=== PATIENT | male | born 1945 | race Caucasian/White ===

== ENCOUNTER → 2016-12-31 | Day surgery (SDC) | payer BC ==
[~2016-12-31] VITALS: Ht 170.2 cm; Wt 88.5 kg
[~2016-12-31] MED LIST: /CELE20CA OR; /ESOM40CA OR; /TAMS4CA OR; /WARF25TA OR; ACET500T37 PO; ACETAMINOPHEN 325 MG TAB PO PRN; ACETYLCHOLINE OPHTH SOLN 1% 2ML As Ordered ONE; AcetaZOLAMIDE 500 MG ER CAP PO ONE; BALANCED SALT IRRIGATION SOLUTION 500ML BAG (FOR OR EYE MACHINE) As Ordered ONE; CEFUROXIME 1MG/0.1ML INTRACAMERAL INJ As Ordered ONE; COZA100T OR; CYCLOPENTOLATE 2% OPHTH SOLN As Ordered ONE; CYCLOPENTOLATE 2% OPHTH SOLN OS ONE; D5W/0.2% SODIUM CHLORIDE 250 ML IV SCH; DEPA250T32 PO; HEALON DUET (HEALON 10MG/ML 0.55ML & HEALON ENDOCOAT 30MG/ML 0.85ML) As Ordered ONE; HYDR12.55 PO; KETOROLAC 0.5% OPHTH SOLN OS ONE; LIDOCAINE 1% SDV 5 ML VIAL As Ordered ONE; LIDOCAINE 4% INJ 5 ML AMP OU ONE; LOSA100T36 PO; MIDAZOLAM INJ 2 MG/2 ML VIAL (J2250) As Ordered ONE; NAPR500T2 PO; NEXI40CA PO; OFLOXACIN 0.3 % (OCUFLOX) OPTH SOL 5ML As Ordered ONE; OFLOXACIN 0.3 % (OCUFLOX) OPTH SOL 5ML OS ONE; PERC5TAB8 OR; PERC7.5T8 OR; PHENYLEPHRINE 2.5% OPHTH SOL 2ML As Ordered ONE; PHENYLEPHRINE 2.5% OPHTH SOL 2ML OS ONE; POVIDONE-IODINE 5% OPHTH PREP SOL 30ML As Ordered ONE; PRAV20TA2 OR; PRAV40TA2 PO; PROPARACAINE 0.5% OPHTH SOL 15ML OS PRN; PROS5TAB OR; PROS5TAB PO; TOPI50TA OR; TRIMETHOBENZAMIDE 300 MG CAP PO PRN; TROPICAMIDE 1% OPHTH SOLN 2 ML As Ordered ONE; TROPICAMIDE 1% OPHTH SOLN 2 ML OS ONE; TYLENOL PO; VITA-112 PO; VITA10006 PO; VYTO10TA5 OR; [UNRECOGNIZED DRUG - OTHER] PO; [UNRECOGNIZED DRUG - REMARK] PO; fentaNYL 100 MCG/2 ML INJECTION (J3010) As Ordered ONE
[2016-12-31 09:00] VITALS: BP 152/88
--- NOTE | 2017-01-01 05:49 | RO ---
DATE OF PROCEDURE: 12/31/2016 PREPROCEDURE DIAGNOSIS: Age-related nuclear cataract left eye. POSTPROCEDURE DIAGNOSIS: Age-related nuclear cataract left eye. PROCEDURE: Phacoemulsification and posterior chamber intraocular lens implantation. The lens used was AU00T0, 22.0 diopter. SURGEON: Argentina Santamaria MD STRATEGIC ADVISOR: ANESTHESIA: Topical with sedation. DESCRIPTION OF PROCEDURE: The patient was prepped and draped in the usual fashion. A lid speculum was placed between the lids. The eye was fixated. A stab incision was made to the anterior chamber, and 1% non-preserved lidocaine was instilled. Then, viscoelastic was instilled. The eye was re-fixated. A 2.75 mm sapphire keratome was used to make a clear corneal temporal limbal incision. Capsulorrhexis was begun with a 30-gauge bent needle and then carried out in a circular fashion with capsulorrhexis forceps. The lens was hydrodissected, and then the phacoemulsification unit was used to make a groove in the nucleus in two meridians. The nucleus was then cracked into four quadrants. Each quadrant was removed with the phacoemulsification unit. Any remaining cortex was removed with the irrigation and aspiration (I and A) unit. Capsular bag was refilled with viscoelastic. A posterior chamber intraocular lens was placed in the capsular bag without difficulty. Any remaining viscoelastic was removed with the I and A unit. The wound was hydrated, and Miochol and cefuroxime were instilled into the anterior chamber. The patient tolerated the procedure well and went to the recovery room in stable condition.
== END | disposition home or self-care (01) ==
LOC: M SDC 07:30
PROVIDERS: ATTEND Ophthalmology
DX: H25.12 Age-related nuclear cataract, left eye (principal); I10 Essential (primary) hypertension; E78.5 Hyperlipidemia, unspecified; K21.9 Gastro-esophageal reflux disease without esophagitis; G47.30 Sleep apnea, unspecified; Z79.899 Other long term (current) drug therapy
CPT/HCPCS: 66984; J2250; J3010

== ENCOUNTER → 2017-01-06 | Outpatient (REF) | payer BC ==
[~2017-01-06] MED LIST changes: -ACETAMINOPHEN 325 MG TAB PO PRN; -ACETYLCHOLINE OPHTH SOLN 1% 2ML As Ordered ONE; -AcetaZOLAMIDE 500 MG ER CAP PO ONE; -BALANCED SALT IRRIGATION SOLUTION 500ML BAG (FOR OR EYE MACHINE) As Ordered ONE; -CEFUROXIME 1MG/0.1ML INTRACAMERAL INJ As Ordered ONE; -CYCLOPENTOLATE 2% OPHTH SOLN As Ordered ONE; -CYCLOPENTOLATE 2% OPHTH SOLN OS ONE; -D5W/0.2% SODIUM CHLORIDE 250 ML IV SCH; -HEALON DUET (HEALON 10MG/ML 0.55ML & HEALON ENDOCOAT 30MG/ML 0.85ML) As Ordered ONE; -KETOROLAC 0.5% OPHTH SOLN OS ONE; -LIDOCAINE 1% SDV 5 ML VIAL As Ordered ONE; -LIDOCAINE 4% INJ 5 ML AMP OU ONE; -MIDAZOLAM INJ 2 MG/2 ML VIAL (J2250) As Ordered ONE; -OFLOXACIN 0.3 % (OCUFLOX) OPTH SOL 5ML As Ordered ONE; -OFLOXACIN 0.3 % (OCUFLOX) OPTH SOL 5ML OS ONE; -PHENYLEPHRINE 2.5% OPHTH SOL 2ML As Ordered ONE; -PHENYLEPHRINE 2.5% OPHTH SOL 2ML OS ONE; -POVIDONE-IODINE 5% OPHTH PREP SOL 30ML As Ordered ONE; -PROPARACAINE 0.5% OPHTH SOL 15ML OS PRN; -TRIMETHOBENZAMIDE 300 MG CAP PO PRN; -TROPICAMIDE 1% OPHTH SOLN 2 ML As Ordered ONE; -TROPICAMIDE 1% OPHTH SOLN 2 ML OS ONE; -fentaNYL 100 MCG/2 ML INJECTION (J3010) As Ordered ONE
== END ==
LOC: M SMT 10:37
PROVIDERS: ATTEND Nurse Practitioner Women's Health
DX: N39.41 Urge incontinence (principal)

== ENCOUNTER → 2017-01-07 | Day surgery (SDC) | payer BC ==
[~2017-01-07] VITALS: Ht 170.2 cm; Wt 88.0 kg
[~2017-01-07] MED LIST changes: +ACETAMINOPHEN 325 MG TAB PO PRN; +ACETYLCHOLINE OPHTH SOLN 1% 2ML As Ordered ONE; +AcetaZOLAMIDE 500 MG ER CAP PO ONE; +BALANCED SALT IRRIGATION SOLUTION 500ML BAG (FOR OR EYE MACHINE) As Ordered ONE; +CEFUROXIME 1MG/0.1ML INTRACAMERAL INJ As Ordered ONE; +CYCLOPENTOLATE 2% OPHTH SOLN OD ONE; +D5W/0.2% SODIUM CHLORIDE 1,000 ML IV SCH; +HEALON DUET (HEALON 10MG/ML 0.55ML & HEALON ENDOCOAT 30MG/ML 0.85ML) As Ordered ONE; +KETOROLAC 0.5% OPHTH SOLN OD ONE; +LIDOCAINE 1% SDV 5 ML VIAL As Ordered ONE; +LIDOCAINE 4% INJ 5 ML AMP OU ONE; +MIDAZOLAM INJ 2 MG/2 ML VIAL (J2250) As Ordered ONE; +OFLOXACIN 0.3 % (OCUFLOX) OPTH SOL 5ML OD ONE; +PHENYLEPHRINE 2.5% OPHTH SOL 2ML OD ONE; +POVIDONE-IODINE 5% OPHTH PREP SOL 30ML As Ordered ONE; +PROPARACAINE 0.5% OPHTH SOL 15ML OD PRN; +TRIMETHOBENZAMIDE 300 MG CAP PO PRN; +TROPICAMIDE 1% OPHTH SOLN 2 ML OD ONE; +fentaNYL 100 MCG/2 ML INJECTION (J3010) As Ordered ONE
--- NOTE | 2017-01-07 08:08 | RO ---
DATE OF PROCEDURE: 01/07/2017 PREPROCEDURE DIAGNOSIS: Age related nuclear cataract right eye. POSTPROCEDURE DIAGNOSIS: Age related nuclear cataract right eye. PROCEDURE: Phacoemulsification and posterior chamber intraocular lens implantation right eye. The lens used was AU00T0, 23.0 diopter. SURGEON: Argentina Santamaria MD GRADER OPERATOR: ANESTHESIA: Topical with sedation. DESCRIPTION OF PROCEDURE: The patient was prepped and draped in the usual fashion. A lid speculum was placed between the lids. The eye was fixated. A stab incision was made to the anterior chamber, and 1% non-preserved lidocaine was instilled. Then, viscoelastic was instilled. The eye was re-fixated. A 2.75 mm sapphire keratome was used to make a clear corneal temporal limbal incision. Capsulorrhexis was begun with a 30-gauge bent needle and then carried out in a circular fashion with capsulorrhexis forceps. The lens was hydrodissected, and then the phacoemulsification unit was used to make a groove in the nucleus in two meridians. The nucleus was then cracked into four quadrants. Each quadrant was removed with the phacoemulsification unit. Any remaining cortex was removed with the irrigation and aspiration (I and A) unit. Capsular bag was refilled with viscoelastic. A posterior chamber intraocular lens was placed in the capsular bag without difficulty. Any remaining viscoelastic was removed with the I and A unit. The wound was hydrated, and Miochol and cefuroxime were instilled into the anterior chamber. The patient tolerated the procedure well and went to the recovery room in stable condition.
[2017-01-07 08:15] VITALS: BP 149/78
== END | disposition home or self-care (01) ==
LOC: M SDC 06:06
PROVIDERS: ATTEND Ophthalmology
DX: H25.11 Age-related nuclear cataract, right eye (principal); I10 Essential (primary) hypertension; E78.5 Hyperlipidemia, unspecified; K21.9 Gastro-esophageal reflux disease without esophagitis; R06.02 Shortness of breath; Z79.899 Other long term (current) drug therapy
CPT/HCPCS: 66984; J2250; J3010

== ENCOUNTER → 2018-12-30 | Outpatient (REF) | payer BC ==
[~2018-12-30] MED LIST changes: +ACET-683 PO; -ACET500T37 PO; -ACETAMINOPHEN 325 MG TAB PO PRN; -ACETYLCHOLINE OPHTH SOLN 1% 2ML As Ordered ONE; -AcetaZOLAMIDE 500 MG ER CAP PO ONE; -BALANCED SALT IRRIGATION SOLUTION 500ML BAG (FOR OR EYE MACHINE) As Ordered ONE; -CEFUROXIME 1MG/0.1ML INTRACAMERAL INJ As Ordered ONE; -CYCLOPENTOLATE 2% OPHTH SOLN OD ONE; -D5W/0.2% SODIUM CHLORIDE 1,000 ML IV SCH; -HEALON DUET (HEALON 10MG/ML 0.55ML & HEALON ENDOCOAT 30MG/ML 0.85ML) As Ordered ONE; -KETOROLAC 0.5% OPHTH SOLN OD ONE; -LIDOCAINE 1% SDV 5 ML VIAL As Ordered ONE; -LIDOCAINE 4% INJ 5 ML AMP OU ONE; -LOSA100T36 PO; +LOSA100T50 PO; -MIDAZOLAM INJ 2 MG/2 ML VIAL (J2250) As Ordered ONE; +NAPR-885 PO; -NAPR500T2 PO; -OFLOXACIN 0.3 % (OCUFLOX) OPTH SOL 5ML OD ONE; -PHENYLEPHRINE 2.5% OPHTH SOL 2ML OD ONE; -POVIDONE-IODINE 5% OPHTH PREP SOL 30ML As Ordered ONE; -PROPARACAINE 0.5% OPHTH SOL 15ML OD PRN; -TRIMETHOBENZAMIDE 300 MG CAP PO PRN; -TROPICAMIDE 1% OPHTH SOLN 2 ML OD ONE; -fentaNYL 100 MCG/2 ML INJECTION (J3010) As Ordered ONE
[2018-12-30 18:53] LABS: CREATININE FOR GFR 1.52 MG/DL (0.70-1.30); GLOMERULAR FILTRATION RATE 47.8 (>42)
== END ==
LOC: M LAB REF 17:35
PROVIDERS: ATTEND Internal Medicine Pulmonary Disease
DX: R06.00 Dyspnea, unspecified (principal)

== ENCOUNTER → 2019-01-11 | Outpatient (CLI) | payer BC ==
--- NOTE | 2019-01-11 11:54 | REP ---
CT CHEST WITHOUT IV CONTRAST: HISTORY: Dyspnea. COMPARISON STUDY: January 05, 2017. 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 There is no evidence of infiltrate or pleural effusion. No pericardial effusion is seen. Minimal linear fibrosis is seen in the lung bases bilaterally. Vascular calcification is noted. Aortic tortuosity is again noted. No hilar or mediastinal mass or adenopathy is observed. No adrenal lesion is seen. There is a cyst in the upper pole of the right kidney measuring 3.5 cm in greatest diameter. This is essentially unchanged from the January 05, 2017 study. The visualized upper abdominal structures are otherwise unremarkable. IMPRESSION: Bibasilar linear fibrosis. Vascular calcification and tortuosity. Cyst in the right kidney. No acute disease. Electronically Signed by Nitish Smith MD 01/11/2019 03:00 P
== END ==
LOC: M RAD 08:33
PROVIDERS: ATTEND Internal Medicine Pulmonary Disease
DX: R06.00 Dyspnea, unspecified (principal); R07.89 Other chest pain; J84.10 Pulmonary fibrosis, unspecified; N28.1 Cyst of kidney, acquired

== ENCOUNTER → 2019-05-17 | Outpatient (CLI) | payer BC ==
[~2019-05-17] MED LIST changes: -/CELE20CA OR; -/ESOM40CA OR; -/TAMS4CA OR; -/WARF25TA OR; +CELE1CAP4 OR; +COUM1TAB18 OR; +FLOM0.4C39 OR; +NEXI1CAP3 OR
[2019-05-17 12:01] LABS: CREATININE FOR GFR 1.65 MG/DL (0.70-1.30); GLOMERULAR FILTRATION RATE 43.5 (>42)
== END ==
LOC: M LRY 07:50
PROVIDERS: ATTEND Internal Medicine Interventional Cardiology
DX: R06.02 Shortness of breath (principal); I11.9 Hypertensive heart disease without heart failure; I20.9 Angina pectoris, unspecified

== ENCOUNTER 2019-06-23 13:13 | Emergency (ER) | payer BC ==
[~2019-06-23] VITALS: Ht 167.6 cm; Wt 86.4 kg
[2019-06-23] MEDS ORDERED: CHLO25TA PO (14:01)
[2019-06-23] MEDS ORDERED: MULTCAP PO (14:01)
[2019-06-23] MEDS ORDERED: AMIO400T5 PO (14:01)
[2019-06-23] MEDS ORDERED: MILKSUS3 PO (14:01)
[2019-06-23] MEDS ORDERED: POTA10TA67 PO (14:01)
[2019-06-23] MEDS ORDERED: ARTIDRO2 OU (14:01)
[2019-06-23] MEDS ORDERED: PRAV40TA2 PO (14:01)
[2019-06-23] MEDS ORDERED: FOLI1TAB11 PO (14:01)
[2019-06-23] MEDS ORDERED: DIVA250T67 PO (14:01)
[2019-06-23] MEDS ORDERED: FURO40TA2 PO (14:01)
[2019-06-23] MEDS ORDERED: BISA10SU20 PR (14:01)
[2019-06-23] MEDS ORDERED: NON-325T5 PO (14:01)
[2019-06-23] MEDS ORDERED: PLAV1TAB2 PO (14:01)
[2019-06-23] MEDS ORDERED: [UNRECOGNIZED DRUG - CODE] PO (14:01)
[2019-06-23] MEDS ORDERED: ASPI81TA26 PO (14:01)
[2019-06-23] MEDS ORDERED: ENEMENE PR (14:01)
[2019-06-23] MEDS ORDERED: OMEP40CA2 PO (14:01)
[2019-06-23] MEDS ORDERED: FERR32TA PO (14:01)
[2019-06-23] MEDS ORDERED: CHOL100029 PO (14:02)
[2019-06-23] MEDS ORDERED: METO25TA4 PO (14:02)
[2019-06-23] MEDS ORDERED: COLA100C5 PO (14:02)
[2019-06-23] MEDS ORDERED: OPTI0.5D5 OU (14:02)
[2019-06-23] MEDS ORDERED: WARF4TAB52 PO (14:02)
[2019-06-23 14:19] LABS: BASO % 0.3 % (0.0-1.0); EOS # 0.1 10^3/uL (0.0-0.5); EOS % 0.8 % (0.0-3.0); HEMATOCRIT 27.2 % (42.0-52.0); HEMOGLOBIN 9.6 g/dl (13.5-17.5); LYMPH % 8.3 % (24.0-44.0); MEAN CORPUSCULAR HEMOGLOBIN 33.1 pg (27.0-33.0); MEAN CORPUSCULAR HGB CONC 35.3 g/dl (32.0-36.5); MEAN CORPUSCULAR VOLUME 93.8 fl (80.0-96.0); MONO # 1.2 10^3/uL (0.0-0.8); NEUTROPHILS # 9.1 10^3/uL (1.5-8.5); NEUTROPHILS % 79.4 % (36.0-66.0); PLATELET COUNT, AUTOMATED 451 10^3/uL (150-450); WHITE BLOOD COUNT 11.5 10^3/uL (4.0-10.0)
[2019-06-23 14:29] LABS: INR 2.63
--- NOTE | 2019-06-23 14:30 | REP ---
Clinical: Cough and dyspnea. Comparison: 09/20/2018. Findings: Relatively recent sternotomy. Increased cardiomegaly is suggested and pulmonary vascular congestion cannot be excluded along with lower lobe opacities and elevation to the right hemidiaphragm. No pneumothorax. Skeletal structures intact. Impression: Cardiomegaly. Cannot exclude pulmonary vascular congestion or basilar opacities. Electronically Signed by Hector Salamanca MD 06/23/2019 02:21 P
[2019-06-23 15:05] LABS: ALBUMIN 2.6 GM/DL (3.2-5.2); BILIRUBIN,DIRECT 0.2 MG/DL (0.0-0.2); BILIRUBIN,TOTAL 0.5 MG/DL (0.2-1.0); C REACTIVE PROTEIN QUANTITATIV 16.2 MG/DL (0.00-0.30); CALCIUM LEVEL 8.3 MG/DL (8.8-10.2); CK-MB VALUE MASS 1.1 NG/ML (<3.6); CREATININE FOR GFR 1.74 MG/DL (0.70-1.30); GLOMERULAR FILTRATION RATE 40.9 (>42); MB/CK RELATIVE INDEX 1.49 (< OR =4); POTASSIUM SERUM 3.8 MEQ/L (3.5-5.1); THYROID STIMULATING HORMONE 2.58 uIU/ML (0.358-3.740); TOTAL PROTEIN 6.1 GM/DL (6.4-8.2); TROPONIN I 0.21 NG/ML (< 0.10)
--- NOTE | 2019-06-23 16:00 | REP ---
Clinical: Cough and dyspnea. Comparison: 01/11/2019. Findings: Subsequent sternotomy since prior examination is appreciated and there is evidence for a small/moderate pericardial effusion with findings to suggest recent CABG and aortic valve repair. Lung harris demonstrate pulmonary vascular congestion along with small to moderate bilateral pleural effusions and consolidations with air bronchograms (right greater than left). No pneumothorax. Impression: 1. Small to moderate pericardial effusion and evidence for recent CABG and aortic valve repair. 2. Pulmonary vascular congestion/edema including small to moderate bilateral pleural effusions and consolidations with air bronchograms (right greater than left). Electronically Signed by Hector Salamanca MD 06/23/2019 03:52 P
--- NOTE | 2019-06-23 16:10 | ECGEPIP ---
[facility] Test Date: 2019-06-23 Pat Name: NEGRITO PAGAN Department: Room: - Gender: Male Change Control Manager: hernán : 1945 Requested By: JAYLEN Murrell Order Number: [id number] Reading MD: Jaylen Jaquez Measurements Intervals [place] Rate: 117 P: ID: 0 QRS: -21 QRSD: 108 T: 94 QT: 384 QTc: 536 Interpretive Statements ATRIAL FIBRILLATION WITH RAPID VENTRICULAR RESPONSE WITH VENTRICULAR PREMATURE COMPLEX INFERIOR MYOCARDIAL INFARCTION, OF INDETERMINATE AGE Nonspecific ST-T abnormalities No prior ECG available for comparison. Electronically Signed on 06-23-2019 16:10:20 EDT by Jaylen Jaquez
[2019-06-23 18:09] VITALS: BP 133/77
--- NOTE | 2019-06-24 07:12 | ECGEPIP ---
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
== END 2019-06-23 18:14 | disposition short-term general hospital (02) ==
LOC: M ED 13:13 → EDBD 13:13 → M ED 18:14
DX: I48.0 Paroxysmal atrial fibrillation (principal); I31.3 Pericardial effusion (noninflammatory); R50.9 Fever, unspecified; I48.91 Unspecified atrial fibrillation; I25.2 Old myocardial infarction; I51.7 Cardiomegaly; Z95.1 Presence of aortocoronary bypass graft; Z79.82 Long term (current) use of aspirin; Z79.01 Long term (current) use of anticoagulants; Z79.899 Other long term (current) drug therapy

== ENCOUNTER → 2019-06-30 | Outpatient (REF) | payer BC ==
[~2019-06-30] MED LIST changes: +AMIO400T5 PO; +ARTIDRO2 OU; +ASPI81TA26 PO; +BISA10SU20 PR; +CHLO25TA PO; +CHOL100029 PO; +COLA100C5 PO; +DIVA250T67 PO; +ENEMENE PR; +FERR32TA PO; +FOLI1TAB11 PO; +FURO40TA2 PO; +METO25TA4 PO; +MILKSUS3 PO; +MULTCAP PO; +NON-325T5 PO; +OMEP40CA2 PO; +OPTI0.5D5 OU; +PLAV1TAB2 PO; +POTA10TA67 PO; +WARF4TAB52 PO; +[UNRECOGNIZED DRUG - CODE] PO
[2019-06-30 18:46] LABS: INR 1.34; PROTHROMBIN TIME 16.3 SECONDS (11.8-14.0)
== END ==
LOC: M LAB REF 16:43
PROVIDERS: ATTEND Nurse Practitioner
DX: Z79.01 Long term (current) use of anticoagulants (principal)

== ENCOUNTER → 2019-07-04 | Outpatient (REF) | payer BC ==
[2019-07-04 14:41] LABS: INR 2.02; PROTHROMBIN TIME 22.6 SECONDS (11.8-14.0)
== END ==
LOC: M LAB REF 14:13
PROVIDERS: ATTEND Nurse Practitioner
DX: Z79.01 Long term (current) use of anticoagulants (principal)

== ENCOUNTER → 2019-07-12 | Outpatient (REF) | payer BC ==
[2019-07-12 18:14] LABS: APPEARANCE, URINE CLEAR (CLEAR); BACTERIA, URINE AUTO NEGATIVE (NEGATIVE); BILIRUBIN, URINE AUTO NEGATIVE (NEGATIVE); BLOOD, URINE BLOOD NEGATIVE (NEGATIVE); COLOR, URINE YELLOW (YELLOW); GLUCOSE, URINE (UA) AUTO NEGATIVE (NEGATIVE); KETONE, URINE AUTO NEGATIVE (NEGATIVE); LEUKOCYTE ESTERASE, URINE AUTO NEGATIVE (NEGATIVE); MUCUS, URINE SMALL (NEGATIVE); NITRITE, URINE AUTO NEGATIVE (NEGATIVE); PROTEIN, URINE AUTO NEGATIVE (NEGATIVE); RBC, URINE AUTO 1 /HPF (0-3); SPECIFIC GRAVITY URINE AUTO 1.014 (1.002-1.035); SQUAMOUS EPITHELIAL CELL UR AU 0 /HPF (0-6); UROBILINOGEN, URINE AUTO 0.2 mg/dL (0.0-2.0); WBC, URINE AUTO 1 /HPF (0-3)
== END ==
LOC: M SMT 17:27
PROVIDERS: ATTEND Nurse Practitioner Women's Health
DX: N40.0 Benign prostatic hyperplasia without lower urinary tract symptoms (principal)

== ENCOUNTER → 2019-07-25 | Outpatient (CLI) | payer BC ==
[2019-07-25 12:52] LABS: BASO % 0.5 % (0.0-1.0); EOS # 0.2 10^3/uL (0.0-0.5); EOS % 3.6 % (0.0-3.0); HEMATOCRIT 35.1 % (42.0-52.0); HEMOGLOBIN 11.1 g/dl (13.5-17.5); LYMPH # 0.9 10^3/uL (1.5-5.0); LYMPH % 15.9 % (24.0-44.0); MEAN CORPUSCULAR HEMOGLOBIN 31.2 pg (27.0-33.0); MEAN CORPUSCULAR HGB CONC 31.6 g/dl (32.0-36.5); MEAN CORPUSCULAR VOLUME 98.6 fl (80.0-96.0); MONO # 0.7 10^3/uL (0.0-0.8); MONO % 11.5 % (0.0-5.0); NEUTROPHILS % 68.2 % (36.0-66.0); PLATELET COUNT, AUTOMATED 296 10^3/uL (150-450); RED BLOOD COUNT 3.56 10^6/uL (4.30-6.10); WHITE BLOOD COUNT 5.9 10^3/uL (4.0-10.0)
[2019-07-25 13:02] LABS: PROTHROMBIN TIME 59.9 SECONDS (11.8-14.0)
[2019-07-25 13:18] LABS: CALCIUM LEVEL 8.6 MG/DL (8.8-10.2); CREATININE FOR GFR 1.64 MG/DL (0.70-1.30); GLOMERULAR FILTRATION RATE 43.8 (>42)
[2019-07-25 13:25] LABS: INR 6.82
== END ==
LOC: M LRY 09:18
PROVIDERS: ATTEND Physician Assistant
DX: Z79.01 Long term (current) use of anticoagulants (principal); I25.10 Atherosclerotic heart disease of native coronary artery without angina pectoris; I48.0 Paroxysmal atrial fibrillation

== ENCOUNTER → 2019-08-01 | Outpatient (CLI) | payer BC ==
[~2019-08-01] MED LIST changes: -OMEP40CA2 PO; +OMEP40CA97 PO
[2019-08-01 12:27] LABS: INR 2.61; PROTHROMBIN TIME 27.8 SECONDS (11.8-14.0)
== END ==
LOC: M LRY 08:06
PROVIDERS: ATTEND Physician Assistant
DX: Z79.01 Long term (current) use of anticoagulants (principal)

== ENCOUNTER → 2019-08-09 | Outpatient (CLI) | payer BC ==
[2019-08-09 11:44] LABS: INR 1.76; PROTHROMBIN TIME 20.3 SECONDS (11.8-14.0)
== END ==
LOC: M LRY 07:52
PROVIDERS: ATTEND Physician Assistant
DX: Z79.01 Long term (current) use of anticoagulants (principal)

== ENCOUNTER 2019-08-17 10:07 | Outpatient (RCR) | payer BC ==
--- NOTE | 2019-07-20 09:22 | CARECAPL ---
Assessment Account #s: Initial Assessment General Diagnoses: CABG, AVR Date of event: Jun 14, 2019 Physician: Jaylen Jaquez Allergies: Coded Allergies: No Known Allergies (Unverified , 06/23/19) Date Entered Program: Jul 20, 2019 Risk strat for cardiac event: High Exercise Stages of change: Pre-contemplation Exercise Prescription Plan educate on cardiovascular disease and increase endurance, strength and flexibility through monitored exercise program. Modalities initiated: Nustep (will add Resistance 1 for 6 minutes), Arm Aerometer (will add resistance of 1.0 for 5 minutes), Dumbells (will add 1lb 1 set 8 reps), Recumbent Bike (will add resistance of 1 for 5 minutes) Frequency: 2 Duration (Minutes) 30 - 60 minutes total exercise a day. 15 - 20 work intervals in minutes. PRN rest intervals in minutes. Functional Capacity Goal Sustained Metabolic Equivalent of a task (MET) goal of 2.5-3.5 for 15-20 minutes. Intensity: 3-Moderate Progression (METS) Increase by: 0.5 METS every: 3-5 sessions Angina with ex: No Target Heart Rate rest + 35-40 per beta raisa therapy Resistance Training: Yes Weight (pounds): 1 Reps: 6-8 Medications Scheduled Amiodarone HCl (Amiodarone HCl), 400 MG PO BID, (Reported) Aspirin (Aspirin EC), 81 MG PO DAILY, (Reported) Carboxymethylcellulos/Glycerin (Refresh Optive Eye Drops), 1 DROP OU DAILY, (Reported) Chlorthalidone (Chlorthalidone), 25 MG PO PRN, (Reported) Clopidogrel Bisulfate (Plavix), 75 MG PO DAILY, (Reported) Divalproex Sodium (Divalproex Sodium), 250 MG PO BID, (Reported) Docusate Sodium (Colace), 100 MG PO BID, (Reported) Esomeprazole Magnesium (Nexium), 40 MG PO DAILY, (Reported) Ferrous Gluconate (Ferrous Gluconate), 324 MG PO BID, (Reported) Finasteride (Proscar), 5 MG PO QHS, (Reported) Folic Acid (Folic Acid), 1 MG PO DAILY, (Reported) Furosemide (Furosemide), 40 MG PO DAILY, (Reported) Metoprolol Tartrate (Metoprolol Tartrate), 25 MG PO BID, (Reported) Multivitamin (Multivitamins), 1 CAP PO DAILY, (Reported) Omeprazole (Omeprazole), 40 MG PO DAILY, (Reported) Potassium Chloride (Potassium Chloride), 10 MEQ PO DAILY, (Reported) Pravastatin Sodium (Pravastatin Sodium), 40 MG PO QHS, (Reported) Vitamin D (Vitamin D3), 1,000 UNITS PO DAILY, (Reported) Warfarin Sodium (Warfarin Sodium), 1 MG PO QPM, (Reported) Scheduled PRN Acetaminophen (Acetaminophen), 650 MG PO Q4H PRN for PAIN / FEVER, (Reported) Bisacodyl (Bisacodyl), 10 MG [place] DAILY PRN for CONSTIPATION, (Reported) Magnesium Hydroxide (Milk of Magnesia), 30 ML PO DAILY PRN for CONSTIPATION, (Reported) Polyvinyl Alcohol (Artificial Tears), 1 DROP OU PRN PRN for DRY EYES, (Reported) Sodium Phosphate,[place]-Dibasic (Enema), 1 KATHI [place] DAILY PRN for CONSTIPATION, (Reported) Discontinued Medications Caffeine (Alertness Aid), 100 MG PO DAILY PRN for HEADACHE, (Reported) Discontinued Reason: Pt states not taking Education Goals Met: No Target Goals Individual exercise Rx (1) BP 140/90 or 130/80 if DM or CKD (1) Aerobic active 30+min 5 days per week (1) Nutrition Date: Jul 20, 2019 Assessment: Initial Assessment Stages of change: Pre-contemplation Diabetes Diabetes: No Weight Management Weight (lbs): 180.2 Height (inches): 66 Waist Circumference (Inches): 46 BMI: 29.05 Weight goal: 150 Special Diet: low salt, low-fat Vitamin/Supplements: Multivitamin, Vitamin D, Other (folic acid and ferrous gluconate) Alcohol: weekly Alcohol Type: beer Alcohol Amount: 1-2 Diet Access Tool: Rate your plate Score: 48 Intervention Freight Car Builder Consult: No Nurse/patient discussion: No Dietary Goals recommended eat healthier portions and less fat. Diet Class: No Referral to Diabetes education: No Referral to lipid clinic: No Referral to weight mangement p: No Education Goals Met: No Target goal LDL-C<100 if triglycerides are >200 Non-HDL-C should be <130 (1) LDL-C<70 for high risk patients (4) HbA1c<7% (1) BMI<25 Waist cir<40in M/<35in F (1) Education Date: Jul 20, 2019 Assessment: Initial Assessment Learning Barriers: ready (some what not receptive to change) Knowledge Test Score: 10 Stages of change: Pre-contemplation Family Support: Yes Tobacco use: No Quit: never smoked Education Goals Met: No Target Goals Complete cessation of tobacco use (1). Psychosocial Date: Jul 20, 2019 Assessment: Initial Assessment Psych Test (Initial/Discharge) Score: 5 Stages of change: Pre-contemplation Intervention Physician Consult: No Physician Referral: No Psychotropic medication none Education Goals Met: No Target Goal Assess presence or absence of depression using a valid screening tool (1). Maximize coping skills (2). Positive support system (2). Patient/Program Goal Preventative Medication: Yes Aspirin, Yes Clopidogrel, Yes Beta blockade, Yes Statin/OTR lipid Lowering, Yes Other (amiodarone) Fall Risk Assess: Yes (positive for fall risk) Provider Assessment Provider Assessment: Proceed with rehab Emmy Morris RN Jul 20, 2019 09:22
--- NOTE | 2019-08-12 08:21 | CARECAPL ---
Assessment Account #s: Re-Assessment I General Diagnoses: CABG, AVR Date of event: Jun 14, 2019 Physician: Jaylen Jaquez Allergies: Coded Allergies: No Known Allergies (Unverified , 06/23/19) Date Entered Program: Jul 20, 2019 Risk strat for cardiac event: High Exercise Date: Aug 10, 2019 Assessment: Re-Assessment I Stages of change: Contemplate Exercise Prescription Plan educate on cardiovascular disease and increase endurance, strength and flexibility through monitored exercise program. Modalities initiated: Treadmill (speed 1.1 fpr 5 minutes mets 1.84 RPE 3), Nustep (resistance of 2 for 15 minutes mets 3.6 RPE 3), Arm Aerometer (resistance of 2.0 for 8 minutes Mets 2.6 RPE 3), Dumbells (1lb 1 set for 15 rep s RPE 4), Recumbent Bike (Resistance of 1 for 5 minutes Mets 2.6 RPE 3) Frequency: 3 Duration (Minutes) 30 - 60 minutes total exercise a day. 15 - 20 work intervals in minutes. PRN rest intervals in minutes. Functional Capacity Goal Sustained Metabolic Equivalent of a task (MET) goal of 3.5-4.5 for 15-20 minutes. Intensity: 3-Moderate Progression (METS) Increase by: 0.5 METS every: 3-5 sessions Angina with ex: No Target Heart Rate rest +35-40 per beta raisa therapy. Resistance Training: Yes Weight (pounds): 1 Reps: 12-15 Hypertension: Yes Hypertension controlled with: Medication Resting 134/82 Peak Exercise BP 160/90 Meds lopressor Medications Scheduled Amiodarone HCl (Amiodarone HCl), 400 MG PO BID, (Reported) Aspirin (Aspirin EC), 81 MG PO DAILY, (Reported) Carboxymethylcellulos/Glycerin (Refresh Optive Eye Drops), 1 DROP OU DAILY, (Reported) Chlorthalidone (Chlorthalidone), 25 MG PO PRN, (Reported) Clopidogrel Bisulfate (Plavix), 75 MG PO DAILY, (Reported) Divalproex Sodium (Divalproex Sodium), 250 MG PO BID, (Reported) Docusate Sodium (Colace), 100 MG PO BID, (Reported) Esomeprazole Magnesium (Nexium), 40 MG PO DAILY, (Reported) Ferrous Gluconate (Ferrous Gluconate), 324 MG PO BID, (Reported) Finasteride (Proscar), 5 MG PO QHS, (Reported) Folic Acid (Folic Acid), 1 MG PO DAILY, (Reported) Furosemide (Furosemide), 40 MG PO DAILY, (Reported) Metoprolol Tartrate (Metoprolol Tartrate), 25 MG PO BID, (Reported) Multivitamin (Multivitamins), 1 CAP PO DAILY, (Reported) Omeprazole (Omeprazole), 40 MG PO DAILY, (Reported) Potassium Chloride (Potassium Chloride), 10 MEQ PO DAILY, (Reported) Pravastatin Sodium (Pravastatin Sodium), 40 MG PO QHS, (Reported) Vitamin D (Vitamin D3), 1,000 UNITS PO DAILY, (Reported) Warfarin Sodium (Warfarin Sodium), 1 MG PO QPM, (Reported) Scheduled PRN Acetaminophen (Acetaminophen), 650 MG PO Q4H PRN for PAIN / FEVER, (Reported) Bisacodyl (Bisacodyl), 10 MG [place] DAILY PRN for CONSTIPATION, (Reported) Magnesium Hydroxide (Milk of Magnesia), 30 ML PO DAILY PRN for CONSTIPATION, (Reported) Polyvinyl Alcohol (Artificial Tears), 1 DROP OU PRN PRN for DRY EYES, (Reported) Sodium Phosphate,[place]-Dibasic (Enema), 1 KATHI [place] DAILY PRN for CONSTIPATION, (Reported) Intervention Education: Self pulse, Ex safety (describes drinking plenty of water and wearing loose comfortable clothing. ), S/S to report (states chest pain, excessive sweating and nausea ), Low NA diet (describes eating a low sodium diet to lower blood pressure.), BP medication (states he takes metoprolol to lower his BP and reduce his pulse.), RPE Scale (demonstrates independently), Equipment orientation (needs some verbal cueing.), warm up/cool down (demonstrates independently), Understand BP (states that his Blood pressure should be below 130/80. eating less sodium and exercise can lower BP.), Physical Active (patient states he needs to remain active to reduce his BP and for his heart to remain healthy.) Education Goals Met: No (will continue to education throughout program.) Target Goals Individual exercise Rx (1) BP 140/90 or 130/80 if DM or CKD (1) Aerobic active 30+min 5 days per week (1) Nutrition Date: Aug 12, 2019 Assessment: Re-Assessment I Stages of change: Contemplate Med Change: No Diabetes Diabetes: No Current Weight (pounds): 180 Weight Goal to lose 2lbs in next 30 days by eating healthier portions. Intervention Composition Molder Consult: No Nurse/patient discussion: Yes Dietary Goals eating healthier portions Diet Class: No Education Eating Healthy (patient stated he will eat more vegetables and whole grains instead of processed foods.) Education Goals Met: No (will continue to educate throughout program.) Target goal LDL-C<100 if triglycerides are >200 Non-HDL-C should be <130 (1) LDL-C<70 for high risk patients (4) HbA1c<7% (1) BMI<25 Waist cir<40in M/<35in F (1) Education Date: Aug 12, 2019 Assessment: Re-Assessment I Intervention Education: CAD (patient stated that cholersterol clogs the arteries causing coronary artery disease.), Risk factors (Patient described overweight, smoking and high cholersterol as risk factors for heart disease.), med compliance (Patient described the importance of taking his medications every day to keep his heart healthy.), cardiac A&P (patient described the 4 chambers of the heart.), Angina S/S (patient described angina is induced by exercise and stops when resting. ), Sexuality (patient states no to be sexual active until told so by MD. ) Education Goals Met: No (will continue to educate throughout program.) Target Goals Complete cessation of tobacco use (1). Psychosocial Date: Aug 12, 2019 Assessment: Re-Assessment I Stages of change: Contemplate Intervention Physician Consult: No Physician Referral: No Med Change: No Stress Management Class: No Uses Stress Management Skills: No Education Goals Met: No (will continue to educate throughout program.) Target Goal Assess presence or absence of depression using a valid screening tool (1). Maximize coping skills (2). Positive support system (2). Patient/Program Goal Preventative Medication: Yes Clopidogrel, Yes Beta blockade, Yes Statin/OTR lipid Lowering, Yes Other (warfarin and lasix) Fall Risk Assess: Yes (not a fall risk was reassessed. ) Provider Assessment Session Number: 6 Provider Assessment: Proceed with rehab (patient is progressing well with cardiac rehab. Attends 3 days a week. ) Emmy Morris RN Aug 12, 2019 08:21
== END 2019-08-18 ==
LOC: M CR 10:07
PROVIDERS: ATTEND Internal Medicine Cardiovascular Disease
DX: Z95.1 Presence of aortocoronary bypass graft (principal)

== ENCOUNTER → 2019-08-24 | Outpatient (CLI) | payer BC ==
[2019-08-24 12:14] LABS: INR 1.45; PROTHROMBIN TIME 17.4 SECONDS (11.8-14.0)
== END ==
LOC: M LRY 09:44
PROVIDERS: ATTEND Physician Assistant
DX: Z79.01 Long term (current) use of anticoagulants (principal)

== ENCOUNTER → 2019-09-05 | Outpatient (CLI) | payer BC ==
[2019-09-05 17:06] LABS: INR 1.77; PROTHROMBIN TIME 20.4 SECONDS (11.8-14.0)
== END ==
LOC: M LRY 10:41
PROVIDERS: ATTEND Physician Assistant
DX: Z79.01 Long term (current) use of anticoagulants (principal)

== ENCOUNTER 2019-09-14 10:25 | Outpatient (RCR) | payer BC ==
--- NOTE | 2019-09-08 10:18 | CARECAPL ---
Assessment Account #s: Re-Assessment II General Diagnoses: CABG, AVR Date of event: Jun 14, 2019 Allergies: Coded Allergies: No Known Allergies (Unverified , 06/23/19) Date Entered Program: Jul 20, 2019 Risk strat for cardiac event: High Exercise Date: Sep 08, 2019 Assessment: Re-Assessment II Exercise Prescription Modalities initiated: Treadmill (1.6/2.0 MTS 2.67 RPE 3 10 MINUTES), Nustep (L4 MTS 3.0 RPE 3 15 MINUTES), Arm Aerometer (2.5 MTS 2.7 RPE 3 10 MINUTES), Recumbent Bike (R2 MTS 5.2 RPE 3 10 MINUTES) Duration (Minutes) 30 - 60 minutes total exercise a day. 15 - 20 work intervals in minutes. PRN rest intervals in minutes. Functional Capacity Goal Sustained Metabolic Equivalent of a task (MET) goal of for minutes. Progression (METS) Increase by: 3.5-4.5 METS every: 15-20 sessions Angina with ex: No Resistance Training: Yes Weight (pounds): 3 Reps: 8-12 Hypertension: Yes Resting 142/90 Peak Exercise BP 160/90 Meds SEE BELOW Medications Scheduled Amiodarone HCl (Amiodarone HCl), 400 MG PO BID, (Reported) Aspirin (Aspirin EC), 81 MG PO DAILY, (Reported) Carboxymethylcellulos/Glycerin (Refresh Optive Eye Drops), 1 DROP OU DAILY, (Reported) Chlorthalidone (Chlorthalidone), 25 MG PO PRN, (Reported) Clopidogrel Bisulfate (Plavix), 75 MG PO DAILY, (Reported) Divalproex Sodium (Divalproex Sodium), 250 MG PO BID, (Reported) Docusate Sodium (Colace), 100 MG PO BID, (Reported) Esomeprazole Magnesium (Nexium), 40 MG PO DAILY, (Reported) Ferrous Gluconate (Ferrous Gluconate), 324 MG PO BID, (Reported) Finasteride (Proscar), 5 MG PO QHS, (Reported) Folic Acid (Folic Acid), 1 MG PO DAILY, (Reported) Furosemide (Furosemide), 40 MG PO DAILY, (Reported) Metoprolol Tartrate (Metoprolol Tartrate), 25 MG PO BID, (Reported) Multivitamin (Multivitamins), 1 CAP PO DAILY, (Reported) Omeprazole (Omeprazole), 40 MG PO DAILY, (Reported) Potassium Chloride (Potassium Chloride), 10 MEQ PO DAILY, (Reported) Pravastatin Sodium (Pravastatin Sodium), 40 MG PO QHS, (Reported) Vitamin D (Vitamin D3), 1,000 UNITS PO DAILY, (Reported) Warfarin Sodium (Warfarin Sodium), 1 MG PO QPM, (Reported) Scheduled PRN Acetaminophen (Acetaminophen), 650 MG PO Q4H PRN for PAIN / FEVER, (Reported) Bisacodyl (Bisacodyl), 10 MG [place] DAILY PRN for CONSTIPATION, (Reported) Magnesium Hydroxide (Milk of Magnesia), 30 ML PO DAILY PRN for CONSTIPATION, (Reported) Polyvinyl Alcohol (Artificial Tears), 1 DROP OU PRN PRN for DRY EYES, (Reported) Sodium Phosphate,[place]-Dibasic (Enema), 1 KATHI [place] DAILY PRN for CONSTIPATION, (Reported) Current BP 130/88 Med Change: Yes Intervention Home exercise: Type (WALKING,JOIN LOCAL GYM), Frequency (3-4 TIMES PER WEEK), Duration (30-60 MINUTES) Resistance Training: Yes Education Goals Met: Yes (SEE PRIOR ITP FOR EDUCATION COVERED AT BEGINNING OF PROGRAM) Target Goals Individual exercise Rx (1) BP 140/90 or 130/80 if DM or CKD (1) Aerobic active 30+min 5 days per week (1) Nutrition Date: Sep 08, 2019 Assessment: Re-Assessment II Diabetes Diabetes: No Current Weight (pounds): 185 Weight Goal 180 Intervention Diet Class: Yes Education Eating Healthy (IRENE) Education Goals Met: Yes (SEEN AIRBRUSH ARTIST TECHNICAL ON 09/05/19) Target goal LDL-C<100 if triglycerides are >200 Non-HDL-C should be <130 (1) LDL-C<70 for high risk patients (4) HbA1c<7% (1) BMI<25 Waist cir<40in M/<35in F (1) Education Date: Sep 08, 2019 Assessment: Re-Assessment II Intervention Education: CAD, Risk factors, med compliance, cardiac A&P, Angina S/S, Sexuality ( ) Education Goals Met: Yes (ALL EDUCATION COVERED AT STATED ABOVE. ACK THAT HE IS UNDERSTANDING OF TOPICS COVERED. WRITTEN MATERIAL GIVEN TO PT) Target Goals Complete cessation of tobacco use (1). Psychosocial Date: Sep 08, 2019 Assessment: Re-Assessment II Education Education: Coping Techniques, S/S depression, Relaxation Techniques (EXCELLENT ATTITUDE TOWARD CARDIAC EVENT, MUCH TIME EXPRESSING FEARS. EXCELLENT ATTITUDE TOWARD EXERCISE AND EDUCATION) Education Goals Met: Yes (PROGRESSING WELL) Target Goal Assess presence or absence of depression using a valid screening tool (1). Maximize coping skills (2). Positive support system (2). Provider Assessment Session Number: 18 Provider Assessment: No changes Sangeeta Brownlee RN Sep 08, 2019 10:18
== END 2019-09-17 ==
LOC: M CR 10:25
PROVIDERS: ATTEND Internal Medicine Cardiovascular Disease
DX: Z51.89 Encounter for other specified aftercare (principal); Z95.1 Presence of aortocoronary bypass graft

== ENCOUNTER → 2019-09-22 | Outpatient (CLI) | payer BC ==
[2019-09-22 11:56] LABS: INR 1.62
== END ==
LOC: M LRY 08:00
PROVIDERS: ATTEND Physician Assistant
DX: I48.0 Paroxysmal atrial fibrillation (principal)

== ENCOUNTER 2019-10-14 10:31 | Outpatient (RCR) | payer BC ==
--- NOTE | 2019-10-03 17:58 | CARECAPL ---
Assessment Account #s: Re-Assessment II (REASSESSMENT III) General Diagnoses: CABG, AVR Date of event: Jun 14, 2019 Physician: Fransisco Ferrer Allergies: Coded Allergies: No Known Allergies (Unverified , 06/23/19) Date Entered Program: Jul 20, 2019 Risk strat for cardiac event: High Exercise Date: Oct 03, 2019 Assessment: Re-Assessment II (REASSESSMENT III) Stages of change: action Exercise Prescription Plan TO EDUCATE AND BUILD ENDURANCE THROUGH MONITORED EXERCISE Modalities initiated: Treadmill (METS=2.67/RPE=3), Nustep (METS=5.0/RPE=3), Arm Aerometer (METS=2.8/RPE=3), Dumbells (3#/RPE=3), Recumbent Bike (METS=3.2/RPE=3) Frequency: 3 Duration (Minutes) 30 - 60 minutes total exercise a day. 15 - 20 work intervals in minutes. PRN rest intervals in minutes. Functional Capacity Goal Sustained Metabolic Equivalent of a task (MET) goal of 3.5-4.5 for 15-20 minutes. Intensity: 3-Moderate Progression (METS) Increase by: 0.5 METS every: 5 sessions TOLERATED Angina with ex: No Target Heart Rate REST +35-40 PER BETA JEANIE THERAPY Resistance Training: Yes Weight (pounds): 3 Reps: 8-12 Hypertension: Yes Hypertension controlled with: Medication (METOPROLOL) Resting 152/80 Peak Exercise BP 160/80 Medications Scheduled Amiodarone HCl (Amiodarone HCl), 400 MG PO BID, (Reported) Aspirin (Aspirin EC), 81 MG PO DAILY, (Reported) Carboxymethylcellulos/Glycerin (Refresh Optive Eye Drops), 1 DROP OU DAILY, (Reported) Chlorthalidone (Chlorthalidone), 25 MG PO PRN, (Reported) Clopidogrel Bisulfate (Plavix), 75 MG PO DAILY, (Reported) Divalproex Sodium (Divalproex Sodium), 250 MG PO BID, (Reported) Docusate Sodium (Colace), 100 MG PO BID, (Reported) Esomeprazole Magnesium (Nexium), 40 MG PO DAILY, (Reported) Ferrous Gluconate (Ferrous Gluconate), 324 MG PO BID, (Reported) Finasteride (Proscar), 5 MG PO QHS, (Reported) Folic Acid (Folic Acid), 1 MG PO DAILY, (Reported) Furosemide (Furosemide), 40 MG PO DAILY, (Reported) Metoprolol Tartrate (Metoprolol Tartrate), 25 MG PO BID, (Reported) Multivitamin (Multivitamins), 1 CAP PO DAILY, (Reported) Omeprazole (Omeprazole), 40 MG PO DAILY, (Reported) Potassium Chloride (Potassium Chloride), 10 MEQ PO DAILY, (Reported) Pravastatin Sodium (Pravastatin Sodium), 40 MG PO QHS, (Reported) Vitamin D (Vitamin D3), 1,000 UNITS PO DAILY, (Reported) Warfarin Sodium (Warfarin Sodium), 1 MG PO QPM, (Reported) Scheduled PRN Acetaminophen (Acetaminophen), 650 MG PO Q4H PRN for PAIN / FEVER, (Reported) Bisacodyl (Bisacodyl), 10 MG AK DAILY PRN for CONSTIPATION, (Reported) Magnesium Hydroxide (Milk of Magnesia), 30 ML PO DAILY PRN for CONSTIPATION, (Reported) Polyvinyl Alcohol (Artificial Tears), 1 DROP OU PRN PRN for DRY EYES, (Reported) Sodium Phosphate,[place]-Dibasic (Enema), 1 KATHI AK DAILY PRN for CONSTIPATION, (Reported) Current BP 132/80 Med Change: No Intervention Home exercise: Type (WALKING,JOIN LOCAL GYM), Frequency (3-5 TIMES PER WEEK), Duration (30-60 MINUTES) Resistance Training: Yes Education Goals Met: Yes (PROGRESSING TOWARD GOALS, SEE PRIOR ITP FOR EDUCATION, CONTINUE TO REINFORCE EDUCATION WHILE IN PROGRAM) Target Goals Individual exercise Rx (1) BP 140/90 or 130/80 if DM or CKD (1) Aerobic active 30+min 5 days per week (1) Nutrition Date: Oct 03, 2019 Assessment: Re-Assessment II (REASSESSMENT III) Stages of change: Preperation Lipid- med/supplement PRAVASTATIN Med Change: No Diabetes Diabetes: No Monitor Blood Sugar at home: No Medication Change: No Special Diet: low salt Vitamin/Supplements: Multivitamin, Vitamin D Current Weight (pounds): 183.8 Intervention Crown Presser Consult: No Nurse/patient discussion: Yes Dietary Goals SMALLER PORTIONS/HEART HEALTHY DIET CHOICES Diet Class: Yes (MET WITH BASKETBALL PLAYER 09/05/2019) Referral to Diabetes education: No Referral to lipid clinic: No Referral to weight mangement p: No Education Eating Healthy Education Goals Met: Yes (PROGRESSING TOWARD GOALS, CONTINUE TO REINFORCE EDUCATION ON PRIOR ITP'S) Target goal LDL-C<100 if triglycerides are >200 Non-HDL-C should be <130 (1) LDL-C<70 for high risk patients (4) HbA1c<7% (1) BMI<25 Waist cir<40in M/<35in F (1) Education Date: Oct 03, 2019 Assessment: Re-Assessment II (REASSESSMENT III) Learning Barriers: ready Stages of change: Preperation Family Support: Yes Tobacco use: No Quit: never smoked Tobacco Use Smokeless tobacco: No Intervention Referral to smoking cessation: No Individual education and couns: No Tobacco Adjunct: No Education class schedule given: No Attended education classes: No Education: tobacco triggers (ABOVE EDUCATIONAL PAMPHLETS GIVEN/REVIEWED WITH PATIENT, PATIENT STATES UNDERSTANDING), CAD, Risk factors, med compliance, cardiac A&P, Angina S/S, Sexuality Education Goals Met: Yes (PROGRESSING TOWARD GOALS, CONTINUE TO REINFORCE EDUCATION GIVEN ABOVE) Target Goals Complete cessation of tobacco use (1). Psychosocial Date: Oct 03, 2019 Assessment: Re-Assessment II (REASSESSMENT III) Stages of change: Preperation Intervention Physician Consult: No Physician Referral: No Med Change: No Stress Management Class: No Uses Stress Management Skills: Yes Education Education: Coping Techniques, S/S depression, Relaxation Techniques (PATIENT EXPRESSES HIMSELF REGARDING CARDIAC EVENT, EXPRESSES FEARS, WORKS IN HIS MACHINE SHOP FOR RELAXATION, NO PROBLEMS WITH DEPRESSION PER PATIENT) Target Goal Assess presence or absence of depression using a valid screening tool (1). Maximize coping skills (2). Positive support system (2). Patient/Program Goal Preventative Medication: Yes Aspirin, Yes Clopidogrel, Yes Beta blockade, Yes Statin/OTR lipid Lowering Fall Risk Assess: Yes (NOT A FALL RISK) Provider Assessment Session Number: 26 Provider Assessment: Proceed with rehab (PT HAS EXCELLENT ATTITUDE TOWARD EXERCISE AND EDUCATIONAL TOPICS, EXCELLENT ATTENDENCE) Yusef Holman RN Oct 03, 2019 17:58
--- NOTE | 2019-10-14 16:54 | CARECAPL ---
Assessment Account #s: Discharge General Diagnoses: CABG, AVR Date of event: Jun 14, 2019 Physician: Fransisco Ferrer Allergies: Coded Allergies: No Known Allergies (Unverified , 06/23/19) Date Entered Program: Jul 20, 2019 Risk strat for cardiac event: High Exercise Date: Oct 14, 2019 Assessment: Followup/Discharge Stages of change: action Exercise Prescription Plan TO EDUCATE AND BUILD ENDURANCE THROUGH MONITORED EXERCISE Modalities initiated: Treadmill (METS=2.89/RPE=3), Nustep (METS=4.6/RPE=3), Arm Aerometer (METS=2.9/RPE=3), Dumbells (3#/RPE=3), Recumbent Bike (METS=3.7/RPE=3) Frequency: 3 Duration (Minutes) 30 - 60 minutes total exercise a day. 15 - 20 work intervals in minutes. PRN rest intervals in minutes. Functional Capacity Goal Sustained Metabolic Equivalent of a task (MET) goal of 3.5-4.5 for 15-20 minutes. Intensity: 3-Moderate Progression (METS) Increase by: METS every: sessions Angina with ex: No Target Heart Rate REST + 35-40 PER BETA JAENIE THERAPY Resistance Training: Yes Weight (pounds): 3 Reps: 8-12 Hypertension: Yes Hypertension controlled with: Medication (METOPROLOL) Resting 122/78 Peak Exercise BP 180/90 Medications Scheduled Amiodarone HCl (Amiodarone HCl), 400 MG PO BID, (Reported) Aspirin (Aspirin EC), 81 MG PO DAILY, (Reported) Carboxymethylcellulos/Glycerin (Refresh Optive Eye Drops), 1 DROP OU DAILY, (Reported) Chlorthalidone (Chlorthalidone), 25 MG PO PRN, (Reported) Clopidogrel Bisulfate (Plavix), 75 MG PO DAILY, (Reported) Divalproex Sodium (Divalproex Sodium), 250 MG PO BID, (Reported) Docusate Sodium (Colace), 100 MG PO BID, (Reported) Esomeprazole Magnesium (Nexium), 40 MG PO DAILY, (Reported) Ferrous Gluconate (Ferrous Gluconate), 324 MG PO BID, (Reported) Finasteride (Proscar), 5 MG PO QHS, (Reported) Folic Acid (Folic Acid), 1 MG PO DAILY, (Reported) Furosemide (Furosemide), 40 MG PO DAILY, (Reported) Metoprolol Tartrate (Metoprolol Tartrate), 25 MG PO BID, (Reported) Multivitamin (Multivitamins), 1 CAP PO DAILY, (Reported) Omeprazole (Omeprazole), 40 MG PO DAILY, (Reported) Potassium Chloride (Potassium Chloride), 10 MEQ PO DAILY, (Reported) Pravastatin Sodium (Pravastatin Sodium), 40 MG PO QHS, (Reported) Vitamin D (Vitamin D3), 1,000 UNITS PO DAILY, (Reported) Warfarin Sodium (Warfarin Sodium), 1 MG PO QPM, (Reported) Scheduled PRN Acetaminophen (Acetaminophen), 650 MG PO Q4H PRN for PAIN / FEVER, (Reported) Bisacodyl (Bisacodyl), 10 MG OR DAILY PRN for CONSTIPATION, (Reported) Magnesium Hydroxide (Milk of Magnesia), 30 ML PO DAILY PRN for CONSTIPATION, (Reported) Polyvinyl Alcohol (Artificial Tears), 1 DROP OU PRN PRN for DRY EYES, (Reported) Sodium Phosphate,[place]-Dibasic (Enema), 1 KATHI [place] DAILY PRN for CONSTIPATION, (Reported) Current BP 124/82 Med Change: No Intervention Resistance Training: Yes Education Goals Met: Yes (SEE EDUCATION COMPLETED ON PRIOR ITP'S, REINFORCED EDUCATION THROUGHOUT PROGRAM) Target Goals Individual exercise Rx (1) BP 140/90 or 130/80 if DM or CKD (1) Aerobic active 30+min 5 days per week (1) Nutrition Date: Oct 14, 2019 Assessment: Followup/Discharge Stages of change: action Lipid- med/supplement PRAVASTATIN Med Change: No Diabetes Diabetes: No Medication Change: No Weight Management Weight (lbs): 183 Special Diet: low salt, low-fat Vitamin/Supplements: Multivitamin, Vitamin D Diet Access Tool: Rate your plate Score: 41 Current Weight (pounds): 183 Intervention Kiln Charger Consult: No Nurse/patient discussion: Yes Dietary Goals TO CHOOSE HEART HEALTHY FOOD ITEMS/SMALLER PORTIONS Diet Class: Yes (MET WITH AGRICULTURAL PRODUCE SORTER 09/05/2019) Referral to Diabetes education: No Referral to lipid clinic: No Referral to weight mangement p: No Education Eating Healthy Education Goals Met: Yes Target goal LDL-C<100 if triglycerides are >200 Non-HDL-C should be <130 (1) LDL-C<70 for high risk patients (4) HbA1c<7% (1) BMI<25 Waist cir<40in M/<35in F (1) Education Date: Oct 14, 2019 Assessment: Followup/Discharge Learning Barriers: ready Stages of change: action Family Support: Yes Tobacco use: No Tobacco Use Smokeless tobacco: No Intervention Referral to smoking cessation: No Individual education and couns: No Tobacco Adjunct: No Education class schedule given: No Attended education classes: No Education Goals Met: Yes (SEE EDUCATION COMPLETED ON PRIOR ITP'S, EDUCATION REINFORCED THROUGHOUT PROGRAM) Target Goals Complete cessation of tobacco use (1). Psychosocial Date: Oct 14, 2019 Assessment: Followup/Discharge Psych Test (Initial/Discharge) Tool Used: Other (PHQ-9) Score: 10 Stages of change: action Intervention Physician Consult: No Physician Referral: No Med Change: No Stress Management Class: No Uses Stress Management Skills: Yes Education Goals Met: Yes (SEE EDUCATION COMPLETED ON PRIOR ITP'S, EDUCATION REINFORCED THROUGHOUT PROGRAM, PATIENT HAS BEEN RECEPTIVE TO EDUCATION AND HAS EXCELLENT ATTENDENCE) Target Goal Assess presence or absence of depression using a valid screening tool (1). Maximize coping skills (2). Positive support system (2). Patient/Program Goal Preventative Medication: Yes Aspirin, Yes Clopidogrel, Yes Beta blockade, Yes Statin/OTR lipid Lowering Fall Risk Assess: Yes (PATIENT IS NOT A FALL RISK) Provider Assessment Session Number: 31 Provider Assessment: No changes Yusef Holman RN Oct 14, 2019 16:54
== END 2019-10-18 ==
LOC: M CR 10:31
PROVIDERS: ATTEND Internal Medicine Cardiovascular Disease
DX: Z51.89 Encounter for other specified aftercare (principal); Z95.1 Presence of aortocoronary bypass graft

== ENCOUNTER → 2019-11-01 | Outpatient (REF) | payer BC ==
[2019-11-01 13:02] LABS: HEMATOCRIT 42.6 % (42.0-52.0)
[2019-11-02 14:02] LABS: FREE T3 2.5 PG/ML (2.2-4.0)
[2019-11-02 14:14] LABS: THYROGLOBULIN ANTIBODY 20.1 U/ML (<60.0); THYROID PEROXIDASE ANTIBODY < 28.0 U/ML (<60.0)
== END ==
LOC: M LAB REF 12:19
PROVIDERS: ATTEND Nurse Practitioner Adult Health
DX: D64.9 Anemia, unspecified (principal); E03.9 Hypothyroidism, unspecified

== ENCOUNTER → 2020-04-26 | Outpatient (CLI) | payer BC ==
[~2020-04-26] MED LIST changes: -ARTIDRO2 OU; +POLYOPD OU
--- NOTE | 2020-04-26 15:43 | REP ---
REASON FOR EXAM: Left-sided rib contusion. There are no prior rib series for comparison. The accompanying frontal view of the chest has been compared to a prior examination of 07/26/2019. The accompanying frontal view of the chest shows chronic changes status quo. There is no acute cardiopulmonary disease. Five views of the left ribs shows a possible fracture of the left 7th rib with possible cortical buckling. IMPRESSION: Possible nondisplaced left 7th rib fracture. Electronically Signed by Julius Squires DO 04/26/2020 04:59 P
== END ==
LOC: M LRY 12:38
PROVIDERS: ATTEND Nurse Practitioner Family
DX: S29.9XXA Unspecified injury of thorax, initial encounter (principal); X58.XXXA Exposure to other specified factors, initial encounter; Y92.89 Other specified places as the place of occurrence of the external cause

== ENCOUNTER → 2020-05-15 | Outpatient (REF) | payer BC ==
[2020-07-02 10:42] LABS: ALBUMIN % 62.2 % (55.8-66.1); BETA-1-GLOBULINS % 6.1 % (4.7-7.2); BETA-2-GLOBULINS % 5.1 % (3.2-6.5); GAMMA GLOBULIN % 8.6 % (11.1-18.8)
[2020-07-02 10:43] LABS: ALBUMIN 4.42 GM/DL (3.29-5.55); ALPHA-1-GLOBULINS 0.28 GM/DL (0.17-0.41); ALPHA-2-GLOBULINS 0.99 GM/DL (0.42-0.99); BETA-1-GLOBULINS 0.43 GM/DL (0.28-0.60); BETA-2-GLOBULINS 0.36 GM/DL (0.19-0.55); GAMMA GLOBULINS 0.61 GM/DL (0.65-1.58); TOTAL PROTEIN 7.1 GM/DL (6.4-8.2)
[2020-08-07 15:01] LABS: VALPROIC ACID (DEPAKOTE) SEE SEPARATE REPORT
== END ==
LOC: M LAB REF 15:44
PROVIDERS: ATTEND Nurse Practitioner Adult Health
DX: G43.909 Migraine, unspecified, not intractable, without status migrainosus (principal)

== ENCOUNTER → 2020-07-03 | Outpatient (REF) | payer BC | LOC: M LAB REF 12:16 | PROVIDERS: ATTEND Nurse Practitioner Adult Health | DX: G43.909 Migraine, unspecified, not intractable, without status migrainosus (principal); R77.9 Abnormality of plasma protein, unspecified ==

== ENCOUNTER → 2020-11-07 | Outpatient (REF) | payer BC ==
[~2020-11-07] MED LIST changes: +ACET-838 PO; +CALCCAP4 PO; +D31000TA2 PO; +ELIQ5TAB PO; +EQ S PO; +FAMO40TA3 PO; +FLOM0.4C39 PO; +LIPI20TA PO; +MULT-90 PO; -NON-325T5 PO; +PROTPAK PO; +VENTAER INH; +WELLTAB40 PO
[2020-11-07 18:08] LABS: PERCENT SATURATION 33.3 % (19.7-50.0)
== END ==
LOC: M LAB REF 16:53
PROVIDERS: ATTEND Internal Medicine Nephrology
DX: E61.1 Iron deficiency (principal)

== ENCOUNTER → 2021-01-30 | Outpatient (CLI) | payer BC ==
[~2021-01-30] MED LIST changes: -ACET-838 PO; +ACET32TAB PO; +FIBE625T PO
--- NOTE | 2021-01-30 08:52 | REP ---
INDICATION: CKD STAGE 3B, BPH W/ LOWER URINARY TRACT SYMPTOMS COMPARISON: None TECHNIQUE: Real time smyth scale ultrasound examination using curved array transducer. FINDINGS: Right kidney measures 8.9 x 5.4 x 4.5 cm and demonstrates cortical atrophic change with increased parenchymal echotexture and increased central sinus fat. Multiple simple and complex cysts are identified measuring up to 3.9 cm at the upper pole. No hydronephrosis or obvious nephrolithiasis. Left kidney measures 10.5 x 5.3 x 5.1 cm and is normal in reniform shape and relatively normal in parenchymal echotexture with increased central sinus fat suggesting chronic medical renal disease. 1 cm lower pole simple appearing cyst noted. No hydronephrosis or obvious nephrolithiasis. IMPRESSION: Asymmetric atrophy to the right kidney along with diffuse bilateral chronic medical renal disease. Few scattered simple and complex cysts noted (right greater than left). <Electronically signed by Hector Salamanca > 01/30/21 0813
--- NOTE | 2021-01-30 08:53 | REP ---
INDICATION: CKD STAGE 3B, BPH W/ LOWER URINARY TRACT SYMPTOMS COMPARISON: None TECHNIQUE: Real time B-mode ultrasound examination using curved array transducer. FINDINGS: Bladder is normal in appearance without wall thickening or mass lesion. Bilateral ureteral jets are identified. Prevoid bladder measures 10.1 x 7.1 x 6.6 cm (309 cc). Postvoid bladder measures 3.9 x 2.7 x 2.8 cm (19 cc). Postvoid residual: 6% IMPRESSION: 1. Normal bladder ultrasound. <Electronically signed by Hector Salamanca > 01/30/21 [id number]
== END ==
LOC: M RAD 07:49
PROVIDERS: ATTEND Internal Medicine Nephrology
DX: N28.1 Cyst of kidney, acquired (principal); N18.32 Chronic kidney disease, stage 3b; N40.1 Benign prostatic hyperplasia with lower urinary tract symptoms

== ENCOUNTER → 2021-03-14 | Outpatient (CLI) | payer BC ==
--- NOTE | 2021-03-14 09:11 | REP ---
INDICATION: CONTUSION COMPARISON: 04/26/2020 TECHNIQUE: Frontal view of the chest with four views of the right hemithorax. FINDINGS: Frontal view of the chest demonstrates no acute cardiopulmonary process, contusion, effusion, or pneumothorax. There is a nondisplaced fracture along the lateral aspect of the right 8th rib and possibly 7th rib. IMPRESSION: Nondisplaced rib fractures. <Electronically signed by Hector Salamanca > 03/14/21 [id number]
== END ==
LOC: M WUC 08:40
PROVIDERS: ATTEND Physician Assistant
DX: S22.31XA Fracture of one rib, right side, initial encounter for closed fracture (principal); X58.XXXA Exposure to other specified factors, initial encounter; Y92.9 Unspecified place or not applicable

== ENCOUNTER 2021-03-21 07:58 | Emergency (ER) | payer BC ==
[~2021-03-21] VITALS: Ht 170.2 cm; Wt 185.0 kg
[2021-03-21] MEDS ORDERED: MM S100C PO (08:15)
[2021-03-21] MEDS ORDERED: HYDR-3713 (08:15)
--- NOTE | 2021-03-21 10:16 | REP ---
INDICATION: known r rib fract, constipation, RUQ pain COMPARISON: None. TECHNIQUE: Upright view of the chest with supine and upright views of the abdomen and pelvis. FINDINGS: Frontal upright view of the chest demonstrates elevation to the right hemidiaphragm and underlying effusion as well as atelectasis cannot be excluded. Supine and upright views of the abdomen and pelvis demonstrate nonspecific bowel gas pattern. Moderate fecal stasis and possible constipation cannot be excluded and warrants clinical correlation. No obvious organomegaly. No significant foreign body. Skeletal structures demonstrate age-related degenerative changes. A mild compression deformity at L1 cannot be excluded and warrants further investigation. IMPRESSION: 1. Nonspecific bowel gas pattern as described above although moderate fecal stasis and constipation cannot be excluded. 2. Cannot exclude mild compression deformity at L1. <Electronically signed by Hector Salamanca > 03/21/21 0915
[2021-03-21] MEDS ORDERED: ACETAMINOPHEN 500 MG TAB PO ONE (10:35)
[2021-03-21] MEDS ORDERED: METHYLNALTREXONE BROMIDE 12 MG/0.6 ML VIAL (RELISTOR) SC ONE (10:35)
--- NOTE | 2021-03-21 11:12 | REP ---
INDICATION: fall, possible compression fracture L1. COMPARISON: None. TECHNIQUE: Axial noncontrast images of the thoracic spine with coronal and sagittal reformations. FINDINGS: Age-related exaggerated kyphosis, mild osteopenia and mild multilevel degenerative changes are appreciated. Thoracic vertebral bodies are intact and without acute fracture/compression injury or subluxation. Alignment is maintained. Spinal canal is patent and normal. Posterior elements and spinous processes are intact. Paravertebral soft tissues are normal. IMPRESSION: No evidence for acute trauma/injury. <Electronically signed by Hector Salamanca > 03/21/21 [id number]
--- NOTE | 2021-03-21 11:13 | REP ---
INDICATION: fall, possible compression fracture L1. COMPARISON: None. TECHNIQUE: Axial noncontrast images of the lumbosacral spine from mid T12 through mid sacrum with coronal and sagittal reformations. This CT examination was performed using the following dose reduction techniques: Automated exposure control, adjustment of mA and/or kv according to the patient's size, and use of iterative reconstruction technique. FINDINGS: Mild age-related osteopenia and mild multilevel degenerative changes are noted. Alignment and lordosis maintained. Vertebral bodies are intact. Posterior elements and spinous processes are intact. There is no evidence for acute fracture/compression injury or subluxation. The spinal canal is patent. The paravertebral soft tissues are normal. IMPRESSION: No evidence for acute fracture/compression injury or subluxation. <Electronically signed by Hector Salamanca > 03/21/21 [id number]
[2021-03-21] MEDS ORDERED: ENEMENE8 PR (11:39)
[2021-03-21] MEDS ORDERED: LACT10SO3 PO (11:39)
[2021-03-21] MEDS ORDERED: LACTULOSE 20 GM/30 ML SYRUP UD PO ONE (11:45)
[2021-03-21 11:51] VITALS: BP 174/87
[2021-03-21] MEDS ORDERED: HYDR-3713 PO (12:07)
== END 2021-03-21 12:05 | disposition home or self-care (01) ==
LOC: M ED 07:58
DX: R07.81 Pleurodynia (principal); K59.00 Constipation, unspecified; M85.88 Other specified disorders of bone density and structure, other site; I48.91 Unspecified atrial fibrillation; I25.10 Atherosclerotic heart disease of native coronary artery without angina pectoris; I10 Essential (primary) hypertension; I71.4 Abdominal aortic aneurysm, without rupture; B17.9 Acute viral hepatitis, unspecified; G47.33 Obstructive sleep apnea (adult) (pediatric); Z88.2 Allergy status to sulfonamides; Z88.8 Allergy status to other drugs, medicaments and biological substances; Z79.01 Long term (current) use of anticoagulants; Z79.899 Other long term (current) drug therapy

== ENCOUNTER → 2021-04-09 | Outpatient (CLI) | payer BC ==
[~2021-04-09] MED LIST changes: +ENEMENE8 PR; +HYDR-3713; +HYDR-3713 PO; +LACT10SO3 PO; +MM S100C PO; +OMEP40CA4 PO; -OMEP40CA97 PO
--- NOTE | 2021-04-09 13:55 | REP ---
INDICATION: COUGH COMPARISON: 03/21/2021 as well as other prior exams. TECHNIQUE: PA/Lateral FINDINGS: Lungs: Clear, no infiltrate. Heart: Normal in size. Mediastinum: There is calcification and tortuosity of the thoracic aorta. The mediastinal silhouette is unchanged. There is elevation of the right hemidiaphragm unchanged. Pleural angles: Unremarkable.. Bones and soft tissues: A few mild compression deformities of the midthoracic spine are stable. Multiple sternal wires and mediastinal clips are present. IMPRESSION: No acute pulmonary disease. Stable chronic findings. <Electronically signed by Freeman Aguero > 04/09/21 [id number]
== END ==
LOC: M RAD 13:35
PROVIDERS: ATTEND Physician Assistant
DX: R05 Cough (principal)

== ENCOUNTER → 2021-05-31 | Outpatient (REF) | payer BC | LOC: M LAB REF 12:51 | PROVIDERS: ATTEND Internal Medicine Nephrology | DX: N18.32 Chronic kidney disease, stage 3b (principal); I12.9 Hypertensive chronic kidney disease with stage 1 through stage 4 chronic kidney disease, or unspecified chronic kidney disease ==

== ENCOUNTER → 2021-06-27 | Outpatient (REF) | payer BC | LOC: M LAB REF 11:30 | PROVIDERS: ATTEND Nurse Practitioner Adult Health | DX: R05 Cough (principal) ==

== ENCOUNTER → 2021-07-17 | Outpatient (CLI) | payer BC ==
[~2021-07-17] MED LIST changes: +ISOVUE-370 76% 100ML VIAL As Ordered ONE
--- NOTE | 2021-07-18 09:41 | REP ---
INDICATION: COUGH ABN IMAG ON CT COMPARISON: 06/23/2019 TECHNIQUE: Axial contrast enhanced images from the thoracic inlet to the upper abdomen with coronal and sagittal reformations using 75 ml Isovue 370 intravenous contrast material. This CT examination was performed using the following dose reduction techniques: Automated exposure control, adjustment of mA and/or kv according to the patient's size, and use of iterative reconstruction technique. FINDINGS: Lung harris demonstrate minimal linear bibasilar fibroatelectatic changes. No acute consolidation. No effusion. No pneumothorax. No obvious nodule or mass lesion. Tracheobronchial tree is patent. No axillary, hilar, or mediastinal adenopathy. Mediastinum demonstrates atherosclerotic changes to the thoracic aorta and coronary arteries along with evidence for prior CABG. No cardiomegaly or pericardial effusion. Surrounding musculoskeletal structures demonstrate healed nondisplaced right rib fractures. Limited upper abdomen demonstrates right renal cysts and normal bilateral adrenal glands. IMPRESSION: Minimal chronic appearing basilar changes. No acute mediastinal or pleuroparenchymal process appreciated. <Electronically signed by Hector Salamanca > 07/18/21 [id number]
== END ==
LOC: M RAD 13:48
PROVIDERS: ATTEND Nurse Practitioner Adult Health
DX: R05 Cough (principal)
CPT/HCPCS: 71260; Q9967

== ENCOUNTER → 2021-09-20 | Outpatient (CLI) | payer BC ==
[~2021-09-20] MED LIST changes: +COQ-100C5 PO; +FERR324T21 PO; -ISOVUE-370 76% 100ML VIAL As Ordered ONE
--- NOTE | 2021-09-21 18:01 | REP ---
INDICATION: CYST OF KIDNEY COMPARISON: 01/30/2021 TECHNIQUE: Real time smyth scale ultrasound examination using curved array transducer. FINDINGS: Right kidney measures 9.6 x 5.0 x 4.5 cm and includes 3.1 x 2.6 x 3.1 cm upper pole cyst, 1.3 x 1.8 x 1.1 cm peripelvic cyst, and 1.0 x 1.4 x 1.2 cm midpole cortical cyst. No hydronephrosis, nephrolithiasis, or renal mass lesion. Increased central sinus fat consistent with chronic age-related change. Left kidney measures 10.0 x 4.7 x 6.0 cm without hydronephrosis, nephrolithiasis, cystic or renal mass lesion. Increased central sinus fat consistent with chronic age-related change. Bladder is under distended and grossly normal by current exam. IMPRESSION: 1. Findings consistent with chronic medical renal disease as described above. 2. Simple appearing right renal cysts. <Electronically signed by Hector Salamanca > 09/21/21 [id number]
== END ==
LOC: M RAD 10:13
PROVIDERS: ATTEND Internal Medicine Nephrology
DX: N28.1 Cyst of kidney, acquired (principal)

== ENCOUNTER → 2022-01-22 | Outpatient (CLI) | payer BC ==
[~2022-01-22] MED LIST changes: -D31000TA2 PO; +LOSA100T45 PO; -LOSA100T50 PO; +VITA100093 PO
== END ==
LOC: M WUC 09:45
PROVIDERS: ATTEND Nurse Practitioner Adult Health
DX: M54.2 Cervicalgia (principal)

== ENCOUNTER → 2022-02-12 | Outpatient (CLI) | payer BC ==
[~2022-02-12] MED LIST changes: +ATOR1TAB21 PO
== END ==
LOC: M WHC 07:31
PROVIDERS: ATTEND Internal Medicine Hematology & Oncology
DX: Z86.19 Personal history of other infectious and parasitic diseases (principal); N28.1 Cyst of kidney, acquired

== ENCOUNTER 2022-03-22 13:33 | Observation (INO) | payer BC ==
[~2022-03-22] VITALS: Ht 170.2 cm; Wt 82.2 kg
[2022-03-22] MEDS ORDERED: BOOSTRIX/ADACEL VACCINE (DIPHTH/PERTUSS/ACELL/TETANUS) 0.5ML SYR IM ONE (13:55)
[2022-03-22] MEDS ORDERED: LIDOCAINE 2% MDV 20ML VIAL SC ONE (15:00)
[2022-03-22] MEDS ORDERED: ceFAZolin SOD 2 GM in IV 1 EA IV ONE (15:00)
[2022-03-22] MEDS ORDERED: ATOR40TA75 PO (15:17)
[2022-03-22 15:40] LABS: BASO % 0.5 % (0.0-1.0); EOS # 0.1 10^3/uL (0.0-0.5); EOS % 2.5 % (0.0-3.0); HEMATOCRIT 39.5 % (42.0-52.0); HEMOGLOBIN 13.2 g/dl (13.5-17.5); LYMPH # 1.2 10^3/uL (1.5-5.0); LYMPH % 20.9 % (24.0-44.0); MEAN CORPUSCULAR HEMOGLOBIN 33.8 pg (27.0-33.0); MEAN CORPUSCULAR HGB CONC 33.4 g/dl (32.0-36.5); MONO # 0.7 10^3/uL (0.0-0.8); MONO % 12.5 % (2.0-8.0); NEUTROPHILS # 3.6 10^3/uL (1.5-8.5); NEUTROPHILS % 63.4 % (36.0-66.0); PLATELET COUNT, AUTOMATED 195 10^3/uL (150-450); RED BLOOD COUNT 3.91 10^6/uL (4.30-6.10); WHITE BLOOD COUNT 5.7 10^3/uL (4.0-10.0)
[2022-03-22] MEDS ORDERED: BACITRACIN OINTMENT 30GM TUBE TOP PRN (15:45)
[2022-03-22 15:50] LABS: INR 1.06; PROTHROMBIN TIME 14.2 SECONDS (12.7-14.5)
[2022-03-22] MEDS ORDERED: POLYSPORIN TOPICAL OINTMENT 15GM TOP ONE (15:50)
[2022-03-22 15:51] LABS: PARTIAL THROMBOPLASTIN TIME 50.9 SECONDS (25.9-37.0)
[2022-03-22 15:57] LABS: CALCIUM LEVEL 8.5 MG/DL (8.8-10.2); CREATININE FOR GFR 1.64 MG/DL (0.70-1.30); GLOMERULAR FILTRATION RATE 43.5 (>42); POTASSIUM SERUM 4.9 MEQ/L (3.5-5.1)
[2022-03-22 16:50] LABS: RSV AMPLIFICATION NEGATIVE (NEGATIVE)
[2022-03-22] MEDS ORDERED: PANT-23 PO (17:28)
[2022-03-22] MEDS ORDERED: HOME MED LIST COMPLETE! XX SCH (17:30)
[2022-03-22] MEDS ORDERED: ACETAMINOPHEN TAB 650MG DOSE (2X325MG) PO PRN (17:55)
[2022-03-22 18:59] LABS: BASO % 0.4 % (0.0-1.0); EOS # 0.1 10^3/uL (0.0-0.5); EOS % 2.4 % (0.0-3.0); HEMATOCRIT 40.4 % (42.0-52.0); HEMOGLOBIN 13.4 g/dl (13.5-17.5); LYMPH # 1.3 10^3/uL (1.5-5.0); LYMPH % 23.2 % (24.0-44.0); MEAN CORPUSCULAR HEMOGLOBIN 33.6 pg (27.0-33.0); MEAN CORPUSCULAR HGB CONC 33.2 g/dl (32.0-36.5); MEAN CORPUSCULAR VOLUME 101.3 fl (80.0-96.0); MONO # 0.5 10^3/uL (0.0-0.8); MONO % 8.9 % (2.0-8.0); NEUTROPHILS # 3.5 10^3/uL (1.5-8.5); NEUTROPHILS % 64.9 % (36.0-66.0); PLATELET COUNT, AUTOMATED 185 10^3/uL (150-450); RED BLOOD COUNT 3.99 10^6/uL (4.30-6.10); WHITE BLOOD COUNT 5.4 10^3/uL (4.0-10.0)
[2022-03-22 19:27] LABS: CREATININE FOR GFR 1.63 MG/DL (0.70-1.30); GLOMERULAR FILTRATION RATE 43.8 (>42); POTASSIUM SERUM 4.9 MEQ/L (3.5-5.1)
[2022-03-22] MEDS: METOPROLOL TART 25 MG TABLET PO SCH (21:00)
[2022-03-22] MEDS ORDERED: FAMOTIDINE 20 MG TAB PO SCH (21:00)
[2022-03-22] MEDS ORDERED: FINASTERIDE 5MG TAB PO SCH (21:00)
[2022-03-22] MEDS ORDERED: TAMSULOSIN 0.4 MG CAP PO SCH (21:00)
[2022-03-22] MEDS: DIVALPROEX 250 MG TAB PO SCH (21:00)
[2022-03-22] MEDS: ceFAZolin SOD 1 GM in D5W MINI-BAG PLUS 50 ML IV SCH (23:00)
[2022-03-23] MEDS: NORCO, ANEXSIA 5/325MG TABLET (HYDROcodone/ACETAMINOPHEN) PO PRN ×2 (00:51→08:12)
[2022-03-23] MEDS: ceFAZolin SOD 1 GM in D5W MINI-BAG PLUS 50 ML IV SCH ×2 (08:12→15:07)
[2022-03-23 08:55] VITALS: BP 158/82
[2022-03-23] MEDS ORDERED: buPROPion **XL** TABLET 150MG (WELLBUTRIN XL) PO SCH (09:00)
[2022-03-23] MEDS ORDERED: ASPIRIN 81MG ENTERIC TABLET PO SCH (09:00)
[2022-03-23] MEDS ORDERED: PANTOPRAZOLE 40MG TAB (PROTONIX) PO SCH (09:00)
[2022-03-23] MEDS: DIVALPROEX 250 MG TAB PO SCH (09:50)
[2022-03-23 09:52] VITALS: BP 149/78
[2022-03-23] MEDS: METOPROLOL TART 25 MG TABLET PO SCH (09:52)
[2022-03-23] MEDS ORDERED: ceFAZolin 2 GM/D5W 50 ML IV BAG (J0690 PER 500MG) As Ordered ONE (12:05)
[2022-03-23] MEDS ORDERED: ONDANSETRON 4MG/2ML VIAL As Ordered ONE (12:35)
[2022-03-23] MEDS ORDERED: dexameTHASONE 4 MG/ML 1ML VIAL (J1100 PER 1MG) As Ordered ONE (12:35)
[2022-03-23] MEDS ORDERED: fentaNYL 100 MCG/2 ML INJECTION As Ordered ONE (12:35)
[2022-03-23] MEDS ORDERED: MIDAZOLAM INJ 2MG/2ML VIAL (J2250 PER 1MG) As Ordered ONE (12:35)
[2022-03-23] MEDS ORDERED: propofoL 200 MG/20 ML VIAL As Ordered ONE (12:36)
[2022-03-23] MEDS ORDERED: LIDOCAINE 2% 100MG/5ML SDV (FOR ANES.) As Ordered ONE (12:36)
[2022-03-23] MEDS ORDERED: LR 1,000 ML IV SCH (13:20)
[2022-03-23] MEDS ORDERED: fentaNYL 100 MCG/2 ML INJECTION IV PRN (13:20)
[2022-03-23] MEDS ORDERED: NORCO, ANEXSIA 5/325MG TABLET (HYDROcodone/ACETAMINOPHEN) PO PRN (13:20)
[2022-03-23] MEDS ORDERED: ONDANSETRON 4MG/2ML VIAL IV PRN (13:20)
[2022-03-23] MEDS ORDERED: ePHEDrine SULFATE 25 MG/5 ML(5MG/ML) SYRINGE As Ordered ONE (13:36)
[2022-03-23] MEDS ORDERED: BUPIVACAINE HCL 0.5% 30ML VIAL As Ordered ONE (13:48)
[2022-03-23] MEDS ORDERED: POLYSPORIN OPHTH OINT 3.5 GM As Ordered ONE (13:54)
[2022-03-23] MEDS ORDERED: KETOROLAC 60MG 2ML VIAL As Ordered ONE (13:59)
[2022-03-23 15:07] VITALS: BP 148/76
[2022-03-23] MEDS ORDERED: HYDR-3715 PO (15:27)
[2022-03-23 15:33] VITALS: BP 146/76
[2022-03-23] MEDS ORDERED: ATORVASTATIN 20 MG TAB PO SCH (21:00)
== END 2022-03-23 16:35 | disposition home or self-care (01) ==
LOC: M ED 13:33 → M ED INP 13:34 → ENRESERV 03-23 06:48 → M MS5PR 03-23 08:28
PROVIDERS: ADMIT Internal Medicine Nephrology; ATTEND Internal Medicine Nephrology
DX: S68.117A Complete traumatic metacarpophalangeal amputation of left little finger, initial encounter (principal); W31.2XXA Contact with powered woodworking and forming machines, initial encounter; Y93.D3 Activity, furniture building and finishing; Y92.89 Other specified places as the place of occurrence of the external cause; Y99.9 Unspecified external cause status; I25.10 Atherosclerotic heart disease of native coronary artery without angina pectoris; Z98.61 Coronary angioplasty status; I12.9 Hypertensive chronic kidney disease with stage 1 through stage 4 chronic kidney disease, or unspecified chronic kidney disease; I48.91 Unspecified atrial fibrillation; E78.5 Hyperlipidemia, unspecified; G43.909 Migraine, unspecified, not intractable, without status migrainosus; N40.0 Benign prostatic hyperplasia without lower urinary tract symptoms; K21.9 Gastro-esophageal reflux disease without esophagitis; N18.30 Chronic kidney disease, stage 3 unspecified; Z79.01 Long term (current) use of anticoagulants; Z79.82 Long term (current) use of aspirin; Z79.899 Other long term (current) drug therapy; Z88.2 Allergy status to sulfonamides; Z88.5 Allergy status to narcotic agent; Z88.8 Allergy status to other drugs, medicaments and biological substances
CPT/HCPCS: 26951; 36415; 73130; 80048; 85025; 85610; 85730; 87631; 90471; 90715; 93005; 96365; 96366; 99284; J0690; J1100; J1885; J2250; J2405; J3010

== ENCOUNTER → 2023-02-19 | Outpatient (CLI) | payer BC ==
[~2023-02-19] MED LIST changes: +ARTIDRO4 OU; +ATOR40TA75 PO; +CLOP75TA99 PO; +HYDR-3715 PO; -LOSA100T45 PO; +LOSA100T46 PO; +PANT-23 PO; -PLAV1TAB2 PO; -POLYOPD OU
== END ==
LOC: M WUC 08:48
PROVIDERS: ATTEND Nurse Practitioner Adult Health
DX: R05.1 Acute cough (principal)

== ENCOUNTER → 2023-06-08 | Outpatient (CLI) | payer BC ==
[~2023-06-08] MED LIST changes: +FINA-48 PO; -PROS5TAB PO
== END ==
LOC: M PLAIMG 12:26
PROVIDERS: ATTEND Nurse Practitioner Adult Health
DX: R05.3 Chronic cough (principal)

== ENCOUNTER → 2023-08-27 | Outpatient (CLI) | payer BC, MEDICARE ==
[~2023-08-27] MED LIST changes: -AMIO400T5 PO; +AMIO400T6 PO
== END ==
LOC: M CARPUL 07:18
PROVIDERS: ATTEND Nurse Practitioner Family
DX: R06.02 Shortness of breath (principal)

== ENCOUNTER → 2023-09-01 | Outpatient (CLI) | payer BC ==
[~2023-09-01] MED LIST changes: +METHACHOLINE KIT INH ONE
== END ==
LOC: M CARPUL 08:17
PROVIDERS: ATTEND Nurse Practitioner Family
DX: R06.02 Shortness of breath (principal)
CPT/HCPCS: 94070; J7674

== ENCOUNTER → 2024-09-16 | Outpatient (CLI) | payer MEDICARE ==
[~2024-09-16] MED LIST changes: +AMIO400T14 PO; -AMIO400T6 PO; -BISA10SU20 PR; +BISA10SU59 PR; -LACT10SO3 PO; +LACT10SO94 PO; -METHACHOLINE KIT INH ONE; +OPTI0.5D2 OU; -OPTI0.5D5 OU
== END ==
LOC: M CARPUL 08:43
PROVIDERS: ATTEND Registered Nurse
DX: I71.20 Thoracic aortic aneurysm, without rupture, unspecified (principal)

== ENCOUNTER → 2024-09-22 | Outpatient (CLI) | payer MEDICARE | LOC: M EKG 08:46 | PROVIDERS: ATTEND Registered Nurse | DX: I48.0 Paroxysmal atrial fibrillation (principal); Z79.01 Long term (current) use of anticoagulants ==

== ENCOUNTER 2024-10-31 11:09 | Emergency (ER) | payer MEDICARE ==
[~2024-10-31] VITALS: Ht 170.2 cm; Wt 83.0 kg
[2024-10-31 12:07] LABS: BLOOD UREA NITROGEN 25 MG/DL (9-23); CALCIUM LEVEL 9.1 MG/DL (8.3-10.6); CARBON DIOXIDE LEVEL 28 MMOL/L (20-31); CHLORIDE LEVEL 104 MMOL/L (98-107); CK-MB VALUE MASS < 1.0 NG/ML (<3.6); CREATININE FOR GFR 1.51 MG/DL (0.70-1.30); GLOMERULAR FILTRATION RATE 47.5 (>35); GLUCOSE, FASTING 94 MG/DL (74-106); POTASSIUM SERUM 4.1 MMOL/L (3.5-5.1); SODIUM LEVEL 139 MMOL/L (136-145)
[2024-10-31 12:12] LABS: CPK CREATINE PHOSPHOKINASE 57 U/L (46-171); MB/CK RELATIVE INDEX 1.75 (< OR =4)
[2024-10-31 12:21] LABS: BASO % 0.6 % (0.0-1.0); EOS # 0.1 10^3/uL (0.0-0.5); EOS % 1.6 % (0.0-3.0); HEMATOCRIT 43.1 % (42.0-52.0); HEMOGLOBIN 14.6 g/dl (13.5-17.5); LYMPH # 1.3 10^3/uL (1.5-5.0); LYMPH % 19.7 % (24.0-44.0); MEAN CORPUSCULAR HEMOGLOBIN 33.2 pg (27.0-33.0); MEAN CORPUSCULAR HGB CONC 33.9 g/dl (32.0-36.5); MONO # 0.6 10^3/uL (0.0-0.8); MONO % 9.7 % (2.0-8.0); NEUTROPHILS # 4.3 10^3/uL (1.5-8.5); NEUTROPHILS % 67.9 % (36.0-66.0); PLATELET COUNT, AUTOMATED 210 10^3/uL (150-450); WHITE BLOOD COUNT 6.4 10^3/uL (4.0-10.0)
[2024-10-31 12:31] LABS: VALPROIC ACID (DEPAKOTE) 53.2 UG/ML (50.0-100.0)
[2024-10-31 13:22] LABS: CK-MB VALUE MASS < 1.0 NG/ML (<3.6)
[2024-10-31 13:23] LABS: CPK CREATINE PHOSPHOKINASE 54 U/L (46-171); MB/CK RELATIVE INDEX 1.85 (< OR =4)
[2024-10-31] MEDS ORDERED: ISOVUE-370 76% 100ML VIAL As Ordered ONE (13:40)
[2024-10-31] MEDS: amLODIPine 5 MG TAB PO ONE ×2 (14:50→17:18)
[2024-10-31] MEDS: CARVedilol 6.25 MG TAB PO ONE (17:33)
[2024-10-31 18:45] VITALS: BP 168/90
[2024-10-31] MEDS: CARVedilol 12.5 MG TAB PO ONE (18:45)
[2024-10-31] MEDS: ISOSORBIDE MON. (IMDUR) 30MG XR TAB PO ONE (18:45)
[2024-10-31 19:45] VITALS: BP 140/72; TEMP 98.1; O2SAT 97
[2024-10-31] MEDS ORDERED: ISOS1TAB35 PO ×2 (20:01→22:40)
[2024-10-31] MEDS ORDERED: AMLO1TAB25 PO (20:01)
[2024-10-31] MEDS ORDERED: CORE12.5 PO (20:01)
[2024-10-31] MEDS ORDERED: ELIQ2.5T PO (22:40)
[2024-10-31] MEDS ORDERED: CARV12.5 PO (22:40)
[2024-10-31] MEDS ORDERED: CAFF200T6 PO (22:40)
[2024-10-31] MEDS ORDERED: OYST1TAB PO (22:40)
[2024-10-31] MEDS ORDERED: AMLO10TA PO (22:40)
[2024-10-31] MEDS ORDERED: CO Q100C2 PO (22:40)
[2024-10-31] MEDS ORDERED: BUPR-332 PO (22:40)
[2024-10-31] MEDS ORDERED: THERTAB52 PO (22:40)
[2024-11-01] MEDS ORDERED: KETOROLAC 30 MG/ML 1ML VIAL IV ONE (06:00)
[2024-11-02] MEDS ORDERED: METO1TAB32 PO (11:32)
== END 2024-10-31 20:24 | disposition home or self-care (01) ==
LOC: M ED 11:09
DX: R06.09 Other forms of dyspnea (principal); I10 Essential (primary) hypertension; R00.1 Bradycardia, unspecified; E78.5 Hyperlipidemia, unspecified; K21.9 Gastro-esophageal reflux disease without esophagitis; F10.10 Alcohol abuse, uncomplicated; Z86.79 Personal history of other diseases of the circulatory system; Z88.2 Allergy status to sulfonamides; Z88.5 Allergy status to narcotic agent; Z88.6 Allergy status to analgesic agent; Z88.8 Allergy status to other drugs, medicaments and biological substances; Z79.52 Long term (current) use of systemic steroids; Z79.01 Long term (current) use of anticoagulants; Z79.02 Long term (current) use of antithrombotics/antiplatelets; Z79.82 Long term (current) use of aspirin; Z79.899 Other long term (current) drug therapy

== ENCOUNTER → 2024-11-29 | Outpatient (CLI) | payer MEDICARE ==
[~2024-11-29] MED LIST changes: +AMLO10TA PO; +AMLO1TAB25 PO; +BUPR-332 PO; +CAFF200T6 PO; +CARV12.5 PO; +CO Q100C2 PO; +CORE12.5 PO; +ELIQ2.5T PO; +ISOS1TAB35 PO; +METO1TAB32 PO; +OYST1TAB PO; +THERTAB52 PO
[2024-11-29 14:46] LABS: BASO % 0.5 % (0.0-1.0); EOS # 0.2 10^3/uL (0.0-0.5); EOS % 2.8 % (0.0-3.0); HEMATOCRIT 41.2 % (42.0-52.0); HEMOGLOBIN 14.1 g/dl (13.5-17.5); LYMPH # 1.7 10^3/uL (1.5-5.0); LYMPH % 28.5 % (24.0-44.0); MEAN CORPUSCULAR HEMOGLOBIN 34.4 pg (27.0-33.0); MEAN CORPUSCULAR HGB CONC 34.2 g/dl (32.0-36.5); MEAN CORPUSCULAR VOLUME 100.5 fl (80.0-96.0); MONO # 0.7 10^3/uL (0.0-0.8); NEUTROPHILS # 3.4 10^3/uL (1.5-8.5); NEUTROPHILS % 56.9 % (36.0-66.0); PLATELET COUNT, AUTOMATED 179 10^3/uL (150-450)
[2024-11-29 15:25] LABS: ALBUMIN 3.4 G/DL (3.2-5.2); BILIRUBIN,TOTAL 0.3 MG/DL (0.3-1.2); CALCIUM LEVEL 8.8 MG/DL (8.3-10.6); CREATININE FOR GFR 1.5 MG/DL (0.70-1.30); GLOMERULAR FILTRATION RATE 47.8 (>35); POTASSIUM SERUM 4.5 MMOL/L (3.5-5.1); TOTAL PROTEIN 6.4 G/DL (5.7-8.2)
== END ==
LOC: M LAB 14:13
PROVIDERS: ATTEND Registered Nurse
DX: I25.10 Atherosclerotic heart disease of native coronary artery without angina pectoris (principal)

== ENCOUNTER → 2024-12-16 | Outpatient (REF) | payer MEDICARE | LOC: M SFHCDERM 16:45 | PROVIDERS: ATTEND Physician Assistant | DX: C44.321 Squamous cell carcinoma of skin of nose (principal) ==

== ENCOUNTER → 2025-01-05 | Outpatient (CLI) | payer MEDICARE ==
[2025-01-05 08:39] LABS: CHOLESTEROL RISK RATIO 4.59 (<5); HDL CHOLESTEROL 43.1 MG/DL (>40); LDL CHOLESTEROL 108.9 MG/DL (<100); NON-HDL-C 154.9 MG/DL
== END ==
LOC: M LAB 07:44
PROVIDERS: ATTEND Registered Nurse
DX: I25.10 Atherosclerotic heart disease of native coronary artery without angina pectoris (principal)

== ENCOUNTER → 2025-09-26 | Outpatient (CLI) | payer MEDICARE ==
[~2025-09-26] MED LIST changes: +AMLO-751 PO; -AMLO10TA PO; -DEPA250T32 PO; +DIVA-65 PO; -FLOM0.4C39 PO; +POTA-232 PO; -POTA10TA67 PO; -PRAV40TA2 PO; +PRAV40TA85 PO; +TAMS-18 PO
[2025-09-26 13:53] LABS: CHOLESTEROL LEVEL 181.0 MG/DL (<200); CHOLESTEROL RISK RATIO 4.01 (<5); LDL CHOLESTEROL 87.9 MG/DL (<100); NON-HDL-C 135.9 MG/DL; TRIGLYCERIDES LEVEL 240.0 MG/DL (<150)
== END ==
LOC: M WUC 08:09
PROVIDERS: ATTEND Nurse Practitioner Family
DX: E78.2 Mixed hyperlipidemia (principal)